=== PATIENT | female | born 1950 | race Caucasian/White ===

== ENCOUNTER 2017-02-06 19:02 | Inpatient (IN) | payer MEDICARE, OTHER ==
[2017-02-06] MEDS ORDERED: Phenergan 25 MG INJ IV ONE (19:13)
[2017-02-06] MEDS ORDERED: Sodium Chloride 0.9% 1000 ML 1,000 ML IV STA ×2 (19:13→20:37)
[2017-02-06] MEDS ORDERED: Sodium Chloride 0.9% 1000 ML 1,000 ML ONE ×2 (19:15→20:47)
[2017-02-06] MEDS ORDERED: Phenergan 25 MG INJ ONE (19:15)
--- NOTE | 2017-02-06 19:15 | ERPHSYRPT ---
- History of Present Illness Time Seen by Provider: 02/06/17 19:21 Historian: patient Exam Limitations: no limitations Physician History: FOR THE PAST MONTH PT HAS HAD DIARRHEA AND LUQ ABDOMINAL CRAMPS/SORENESS; FOR THE PAST WEEK PT HAS HAD NAUSEA; FOR THE PAST 5 DAYS BLACK STOOLS; TODAY VOMITING BLACK EMESIS X1. PT HAS BEEN TAKING PEPTO BISMAL. PT DENIES FEVER, COUGH, DYSURIA; ADMITS TO DAILY ALCOHOL CONSUMPTION FOR THE PAST 15 YEARS. Allergies/Adverse Reactions: No Known Drug Allergies Allergy (Unverified 02/06/17 19:07) Home Medications: No Reportable Medications [No Reported Medications] 02/06/17 [History] - Review of Systems Constitutional: No Fever Respiratory: No Cough Abdominal/Gastrointestinal: Abdominal Pain, Nausea, Vomiting, Diarrhea Genitourinary Symptoms: No Dysuria Neurological: No Headache Psychological: Alcohol Abuse All Other Systems: Reviewed and Negative - Nursing Vital Signs Nursing Vital Signs: Initial Vital Signs Temperature 98.0 F 02/06/17 19:07 Pulse Rate 120 H 02/06/17 19:07 Respiratory Rate 16 02/06/17 19:07 Blood Pressure 112/56 02/06/17 19:07 O2 Sat by Pulse Oximetry 96 02/06/17 19:07 Pain Scale Pain Intensity 2 - Physical Exam General Appearance: alert Eye Exam: PERRL/EOMI Ears, Nose, Throat Exam: pharynx normal, moist mucous membranes Neck Exam: normal inspection Respiratory Exam: lungs clear Cardiovascular Exam: normal heart sounds Gastrointestinal/Abdomen Exam: soft, normal bowel sounds Rectal Exam: normal rectal tone, hemorrhoids (ONE EXTERNAL HEMORRHOID) Back Exam: normal range of motion Extremity Exam: normal inspection, No pedal edema Neurologic Exam: alert, cooperative Skin Exam: warm, dry - Course Nursing assessment & vital signs reviewed: Yes - CT Exams Abdomen/Pelvis CT Interpretation: Discussed w/radiologist (NO COMPS. SPLENIC FLEXURE COLONIC MASS PRODUCING HIGH GRADE OBSTRUCTION. PROXIMAL COLON FLUID DISTENDED UP TO 4.7 CM. SMALL BOWEL LOOPS FLUID DISTENDED UP TO 3 CM & STOMACH MILDLY FLUID DISTENDED. SMALL FREE FLUID L COLIC GUTTER. 10MM L LOBE & 5MM R LOBE HEPATIC HYPODENSE LESIONS, METS VS CYST/HEMANGIOMA. ALSO 11MM SPLENIC CYST & CALCIFIED GRANULOMAS.) Ordered Tests: Active Orders 24 hr Category Date Time Status IV Insertion STAT Care 02/06/17 19:13 Active ABDOMEN AND PELVIS W/0 CONTRAS [CT] Stat Exams 02/06/17 19:43 Taken AMYLASE Stat Lab 02/06/17 19:35 Completed BLOOD CULTURE Stat Lab 02/06/17 21:02 Ordered CBC W DIFF Stat Lab 02/06/17 19:35 Completed CMP Stat Lab 02/06/17 19:35 Completed CULTURE,URINE Stat Lab 02/06/17 19:35 Received LIPASE Stat Lab 02/06/17 19:35 Completed Occult Blood,Stool Other Stat Lab 02/06/17 19:35 Ordered UA W/ MICROSCOPIC Stat Lab 02/06/17 19:35 Completed Medication Summary Generic Name Dose Route Start Last Admin Trade Name Freq PRN Reason Stop Dose Admin Sodium Chloride 1,000 mls @ 999 mls/hr 02/06/17 20:37 02/06/17 20:51 Sodium Chloride 0.9% 1000 Ml IV 02/06/17 21:37 999 mls/hr .Q1H1M STA Administration Ceftriaxone Sodium/Dextrose 1 g in 50 mls @ 100 mls/hr 02/06/17 21:02 Rocephin 1 Gm-D5w 50 Ml Bag IV 02/06/17 21:31 STAT STA Discontinued Medications Generic Name Dose Route Start Last Admin Trade Name Freq PRN Reason Stop Dose Admin Hydromorphone HCl 0.5 mg 02/06/17 19:42 02/06/17 19:49 Hydromorphone 1 Mg/Ml Ampule IV 02/06/17 19:43 0.5 mg STAT ONE Administration Hydromorphone HCl Confirm 02/06/17 19:46 Hydromorphone 1 Mg/Ml Ampule Administered 02/06/17 19:47 Dose 1 mg .ROUTE .STK-MED ONE Sodium Chloride 1,000 mls @ 999 mls/hr 02/06/17 19:13 02/06/17 19:36 Sodium Chloride 0.9% 1000 Ml IV 02/06/17 20:13 999 mls/hr .Q1H1M STA Administration Sodium Chloride Confirm 02/06/17 19:15 Sodium Chloride 0.9% 1000 Ml Administered 02/06/17 19:16 Dose 1,000 mls @ ud .ROUTE .STK-MED ONE Sodium Chloride Confirm 02/06/17 20:47 Sodium Chloride 0.9% 1000 Ml Administered 02/06/17 20:48 Dose 1,000 mls @ ud .ROUTE .STK-MED ONE Promethazine HCl 12.5 mg 02/06/17 19:13 02/06/17 19:36 Phenergan 25 Mg Inj IV 02/06/17 19:14 12.5 mg STAT ONE Administration Promethazine HCl Confirm 02/06/17 19:15 Phenergan 25 Mg Inj Administered 02/06/17 19:16 Dose 25 mg .ROUTE .STK-MED ONE Lab/Rad Data: Laboratory Result Diagrams 02/06/17 19:35 02/06/17 19:35 Laboratory Results 02/06/17 02/06/17 02/06/17 Range/Units 19:35 19:35 19:35 WBC 15.6 H (4.0-10.5) K/mm3 RBC 4.55 (4.1-5.4) M/mm3 Hgb 13.9 (12.0-16.0) gm/dl Hct 42.4 (35-47) % MCV 93.2 (78-100) fl MCH 30.5 (26-32) pg MCHC 32.8 (32-36) g/dl RDW 12.7 (11.5-14.0) % Plt Count 520 H (150-450) K/mm3 MPV 10.0 H (6-9.5) fl Gran % 71.9 H (36.0-66.0) % Lymphocytes % 17.9 L (24.0-44.0) % Monocytes % 9.2 (0.0-12.0) % Eosinophils % 0.6 (0.00-5.0) % Basophils % 0.4 (0.0-0.4) % Basophils # 0.06 (0-0.4) Sodium 139 (136-145) mEq/L Potassium 4.0 (3.5-5.1) mEq/L Chloride 100 (98-107) mEq/L Carbon Dioxide 23.3 (21-32) mEq/L Anion Gap 19.5 H (5-15) MEQ/L BUN 21 H (9-20) mg/dL Creatinine 1.03 (0.55-1.30) mg/dl Estimated GFR 57 ML/MIN Glucose 111 H (70-110) MG/DL Calcium 9.4 (8.5-10.1) mg/dL Total Bilirubin 0.40 (0.2-1.0) mg/dL AST 23 (15-37) U/L ALT 18 (12-78) U/L Alkaline Phosphatase 98 (46-116) U/L Serum Total Protein 8.4 H (6.4-8.2) gm/dL Albumin 3.6 (3.4-5.0) g/dL Amylase 30 (25-115) U/L Lipase 145 (73-393) U/L Ur Collection Type Urine Color (YELLOW) Urine Appearance (CLEAR) Urine pH (5-6) Ur Specific [place] (1.005-1.025) Urine Protein (Negative) Urine Ketones (NEGATIVE) Urine Blood (0-5) Dickson/ul Urine Nitrite (NEGATIVE) Urine Bilirubin (NEGATIVE) Urine Urobilinogen (0-1) mg/dL Ur Leukocyte Esterase (NEGATIVE) Urine Microscopic WBC (0-5) /HPF Ur Epithelial Cells (FEW) /HPF Urine Bacteria (NEGATIVE) /HPF Urine Glucose (NEGATIVE) mg/dL Specimen Received ABO Group B Rh Factor POSITIVE Antibody Screen NEGATIVE (NEGATIVE) 02/06/17 Range/Units 19:35 WBC (4.0-10.5) K/mm3 RBC (4.1-5.4) M/mm3 Hgb (12.0-16.0) gm/dl Hct (35-47) % MCV (78-100) fl MCH (26-32) pg MCHC (32-36) g/dl RDW (11.5-14.0) % Plt Count (150-450) K/mm3 MPV (6-9.5) fl Gran % (36.0-66.0) % Lymphocytes % (24.0-44.0) % Monocytes % (0.0-12.0) % Eosinophils % (0.00-5.0) % Basophils % (0.0-0.4) % Basophils # (0-0.4) Sodium (136-145) mEq/L Potassium (3.5-5.1) mEq/L Chloride (98-107) mEq/L Carbon Dioxide (21-32) mEq/L Anion Gap (5-15) MEQ/L BUN (9-20) mg/dL Creatinine (0.55-1.30) mg/dl Estimated GFR ML/MIN Glucose (70-110) MG/DL Calcium (8.5-10.1) mg/dL Total Bilirubin (0.2-1.0) mg/dL AST (15-37) U/L ALT (12-78) U/L Alkaline Phosphatase (46-116) U/L Serum Total Protein (6.4-8.2) gm/dL Albumin (3.4-5.0) g/dL Amylase (25-115) U/L Lipase (73-393) U/L Ur Collection Type CLEAN CATCH Urine Color YELLOW (YELLOW) Urine Appearance CLOUDY (CLEAR) Urine pH 5.0 (5-6) Ur Specific [place] 1.025 (1.005-1.025) Urine Protein TRACE (Negative) Urine Ketones SMALL (NEGATIVE) Urine Blood NEGATIVE (0-5) Dickson/ul Urine Nitrite NEGATIVE (NEGATIVE) Urine Bilirubin NEGATIVE (NEGATIVE) Urine Urobilinogen NORMAL (0-1) mg/dL Ur Leukocyte Esterase 2+ (NEGATIVE) Urine Microscopic WBC 15-25 (0-5) /HPF Ur Epithelial Cells FEW (FEW) /HPF Urine Bacteria FEW (NEGATIVE) /HPF Urine Glucose NEGATIVE (NEGATIVE) mg/dL Specimen Received [id number] ABO Group Rh Factor Antibody Screen (NEGATIVE) - Progress Discussed with DrNomi: Rk (2108 - WILL CONSULT)Danny (ADMIT - 2100) - Departure Time of Disposition: 21:10 Departure Disposition: Observation Clinical Impression: ABDOMINAL PAIN, COLONIC MASS, UTI Condition: Stable Critical Care Time: No Referrals: DOCTOR,NO FAMILY [Primary Care Provider] -
[2017-02-06] MEDS ORDERED: Hydromorphone 1 mg/ml Ampule IV ONE (19:42)
[2017-02-06 19:44] LABS: BASOPHIL % 0.4 % (0.0-0.4); Eosinophil % 0.6 % (0.00-5.0); Granulocytes % 71.9 % (36.0-66.0); Lymphocytes % 17.9 % (24.0-44.0); Mean Cell Volume 93.2 fl (78-100); Mean Corpuscular Hemoglobin 30.5 pg (26-32); Monocytes % 9.2 % (0.0-12.0); Platelet Count 520 K/mm3 (150-450); Red Blood Count 4.55 M/mm3 (4.1-5.4); Red Cell Distribution Width 12.7 % (11.5-14.0); White Blood Count 15.6 K/mm3 (4.0-10.5)
[2017-02-06] MEDS ORDERED: Hydromorphone 1 mg/ml Ampule ONE (19:46)
[2017-02-06 20:06] LABS: ALBUMIN 3.6 g/dL (3.4-5.0); ANION GAP 19.5 MEQ/L (5-15); BILIRUBIN,TOTAL 0.4 mg/dL (0.2-1.0); Carbon Dioxide 23.3 mEq/L (21-32); Total Protein 8.4 gm/dL (6.4-8.2)
[2017-02-06 20:55] LABS: Collection Type CLEAN CATCH; Glucose NEGATIVE (NEGATIVE); Leukocyte Esterase 2+ (NEGATIVE)
[2017-02-06 20:56] LABS: ADD URINE CULTURE? YES (NO); Bacteria FEW /HPF (NEGATIVE); Bilirubin NEGATIVE (NEGATIVE); Blood NEGATIVE Ery/ul (0-5); COMPLETE URINE MICROSCOPIC? YES; Epithelial Cells FEW /HPF (FEW); WBC 15-25 /HPF (0-5)
[2017-02-06] MEDS ORDERED: ROCEPHIN 1 Gm-D5w 50 ml Bag** 1 G/50 ML IVPB IV STA (21:02)
[2017-02-06] MEDS ORDERED: ROCEPHIN 1 Gm-D5w 50 ml Bag** 1 G/50 ML IVPB IV ONE (21:07)
[2017-02-06 21:27] LABS: INR 1.01 (0.8-3.0); PROTIME 11.4 SECONDS (9.95-12.35)
[2017-02-06 21:30] LABS: PTT 32.3 SECONDS (25.3-37.0)
[2017-02-06] MEDS ORDERED: Ativan 2 MG/1 ML VIAL IV PRN (22:50)
[2017-02-06] MEDS ORDERED: Zofran 4 MG/2 ML VIAL IV PRN (22:50)
[2017-02-06] MEDS: DILAUDID 2 MG INJECTION IV PRN (23:02)
[2017-02-06] MEDS: Phenergan 25 MG INJ IV PRN (23:02)
[2017-02-06] MEDS: Sodium Chloride 0.9% 1000 ML 1,000 ML IV SCH (23:02)
[2017-02-07 05:06] LABS: Eosinophil % 0.5 % (0.00-5.0); Granulocytes % 76.8 % (36.0-66.0); Lymphocytes % 13.1 % (24.0-44.0); Mean Cell Volume 95.4 fl (78-100); Mean Corpuscular Hemoglobin 30.3 pg (26-32); Mean Platelet Volume 9.3 fl (6-9.5); Monocytes % 9.4 % (0.0-12.0); Platelet Count 464 K/mm3 (150-450); Red Blood Count 4.09 M/mm3 (4.1-5.4); Red Cell Distribution Width 12.6 % (11.5-14.0); White Blood Count 15.1 K/mm3 (4.0-10.5)
[2017-02-07 05:07] LABS: BASOPHIL % 0.2 % (0.0-0.4)
[2017-02-07] MEDS: Phenergan 25 MG INJ IV PRN ×2 (05:24→09:32)
[2017-02-07] MEDS: DILAUDID 2 MG INJECTION IV PRN ×2 (05:24→09:27)
[2017-02-07 05:25] LABS: ALBUMIN 2.8 g/dL (3.4-5.0); ALKALINE PHOSPHATASE 80 U/L (46-116); ANION GAP 14.7 MEQ/L (5-15); BLOOD UREA NITROGEN 20 mg/dL (9-20); CHLORIDE 106 mEq/L (98-107); Carbon Dioxide 25.5 mEq/L (21-32); Glucose 112 MG/DL (70-110); SGOT/AST 18 U/L (15-37); SGPT/ALT 14 U/L (12-78); SODIUM 142 mEq/L (136-145); Total Protein 6.9 gm/dL (6.4-8.2)
[2017-02-07] MEDS ORDERED: MORPHINE SULFATE 10 MG/ML IV ONE (08:00)
[2017-02-07] MEDS ORDERED: BLOXIVERZ IV ONE (08:00)
[2017-02-07] MEDS ORDERED: Decadron 4 MG INJ IV ONE (08:00)
[2017-02-07] MEDS ORDERED: ROBINUL IV ONE (08:00)
[2017-02-07] MEDS ORDERED: Quelicin Fliptop 200 MG/10 ML IJ ONE (08:00)
[2017-02-07] MEDS ORDERED: Zemuron 100 MG/10 ML IJ ONE (08:00)
[2017-02-07] MEDS ORDERED: SUBLIMAZE 100 MCG/2 ML IV ONE (08:00)
[2017-02-07] MEDS ORDERED: Zofran 4 MG/2 ML VIAL IV ONE (08:00)
[2017-02-07] MEDS ORDERED: PHENYLEPHRINE HCL IJ ONE (08:00)
[2017-02-07] MEDS ORDERED: DIPRIVAN 200 MG/20 ML IV ONE (08:00)
--- NOTE | 2017-02-07 08:43 | PCM.HP ---
History of Present Illness - Chief Complaint Chief Complaint: ABDOMINAL PAIN; COLONIC MASS; UTI. History of Present Illness: is a 66 year old female pt who last saw me in office about 5 years ago who came through ER complaining of 1mo of diarrhea, 1 d of vomiting, and black tarry stools. Diarrhea was daily to twice daily. Her vomitus was black and smells like feces. She has been having LUQ pain for the past 1 mo. She was found in ER to have a colonic mass at the splenic flexure with high grade obstruction and fluid in the small intesting and stomach. She did projectile vomit an unknown amount last night, and after that vomited 650 cc of black liquid that smelled like feces. Last po intake was some green tea the day of admission. She may have had some solid food that day as well. She smokes daily at least 1 PPD and drinks 5-6 drinks on average daily (beer or Shayne Ruiz). Occasional THC use, denies other drug use. Denies any recent weight loss; lost weight 5 yrs ago when her and never regained it. No fever. She has never had a mammogram. Never had any abdominal surgeries. - Review of Systems Cardiac: Chest Pain (1 mo ago, may have been related to activity) Abdominal/Gastrointestinal: Abdominal Pain, Nausea, Vomiting, Diarrhea, Melena, Appetite Changes Psychological: Alcohol Abuse, Drug Abuse All Other Systems: Reviewed and Negative Medications & Allergies Home Medications: Home Medication List Multivitamin [Multi-Vitamin Daily] 1 tablet PO DAILY 02/06/17 [History Confirmed 02/06/17] Allergies/Adverse Reactions: Allergies Allergy/AdvReac Type Severity Reaction Status Date / Time No Known Drug Allergies Allergy Verified 02/06/17 21:47 - Past Medical History Past Medical History: No Neurological History: No Pertinent History ENT History: No Pertinent History Cardiac History: No Pertinent History Respiratory History: No Pertinent History Endocrine Medical History: No Pertinent History Musculoskelatal History: No Pertinent History GI Medical History: No Pertinent History History: No Pertinent History Pyscho-Social History: No Pertinent History Reproductive Disorders: No Pertinent History - Female History Hx Last Menstrual Period: n/a Are you now?: No - Past Surgical History Past Surgical History: No Neuro Surgical History: No Pertinent History Cardiac History: No Pertinent History Respiratory Surgery: No Pertinent History GI Surgical History: No Pertinent History Genitourinary Surgical Hx: No Pertinent History Musculskeletal Surgical Hx: No Pertinent History Female Surgical History: No Pertinent History - Social History Smoking Status: Current every day smoker How long have you smoked: 47 years Exposure to second hand smoke: No Alcohol: Daily Drug Use: none - Physical Exam Vital Signs: Vital Signs - 24 hr Temp Pulse Resp BP Pulse Ox 02/07/17 08:00 98.6 F 100 H 18 109/61 92 L 02/07/17 04:32 89 20 96 02/07/17 04:00 98.3 F 100 H 20 124/72 96 02/07/17 00:32 96 02/07/17 00:00 16 90 L 02/06/17 22:01 98.4 F 101 H 18 121/61 90 L 02/06/17 21:44 101 H 18 121/61 90 L 02/06/17 21:13 100 H 16 144/78 95 02/06/17 20:56 99 H 14 118/67 100 02/06/17 20:05 100 H 20 136/74 95 02/06/17 19:07 98.0 F 120 H 16 112/56 96 Oxygen-Last 24 hours O2 Percentage 2 Liters = 28% O2 Percentage 2 Liters = 28% General Appearance: no apparent distress, thin Neurologic Exam: alert, 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, cooperative, normal mood/affect Eye Exam: eyes nml inspection Ears, Nose, Throat Exam: moist mucous membranes Neck Exam: normal inspection Respiratory Exam: normal breath sounds, crackles/rales (faint crackles RLL), other (good air exchange), No rhonchi, No wheezing Cardiovascular Exam: regular rate/rhythm, normal heart sounds, No murmur Gastrointestinal/Abdomen Exam: soft, tenderness (generalized diffuse very mild ttp), other (hyperactive bowel sounds), No distention, No mass, No guarding, No rebound Rectal Exam: not done (done in ER, no gross blood, not enough stool to hemoccult ) Back Exam: normal inspection Extremity Exam: No pedal edema, No swelling Skin Exam: normal color, warm, dry, No rash Results - Labs Lab/Micro Results: Lab Results-Last 24 Hours 02/07/17 02/07/17 Range/Units 05:03 05:03 WBC 15.1 H (4.0-10.5) K/mm3 RBC 4.09 L (4.1-5.4) M/mm3 Hgb 12.4 (12.0-16.0) gm/dl Hct 39.0 (35-47) % MCV 95.4 (78-100) fl MCH 30.3 (26-32) pg MCHC 31.8 L (32-36) g/dl RDW 12.6 (11.5-14.0) % Plt Count 464 H (150-450) K/mm3 MPV 9.3 (6-9.5) fl Gran % 76.8 H (36.0-66.0) % Lymphocytes % 13.1 L (24.0-44.0) % Monocytes % 9.4 (0.0-12.0) % Eosinophils % 0.5 (0.00-5.0) % Basophils % 0.2 (0.0-0.4) % Basophils # 0.03 (0-0.4) Sodium 142 (136-145) mEq/L Potassium 4.0 (3.5-5.1) mEq/L Chloride 106 (98-107) mEq/L Carbon Dioxide 25.5 (21-32) mEq/L Anion Gap 14.7 (5-15) MEQ/L BUN 20 (9-20) mg/dL Creatinine 0.72 (0.55-1.30) mg/dl Estimated GFR > 60 ML/MIN Glucose 112 H (70-110) MG/DL Calcium 8.4 L (8.5-10.1) mg/dL Total Bilirubin 0.40 (0.2-1.0) mg/dL AST 18 (15-37) U/L ALT 14 (12-78) U/L Alkaline Phosphatase 80 (46-116) U/L Serum Total Protein 6.9 (6.4-8.2) gm/dL Albumin 2.8 L (3.4-5.0) g/dL - Other Procedures and Tests Respiratory Therapy 02/07/17 05:39 Oxygen NASAL CANNULA 2 lpm Assessment/Plan (1) Colonic mass Current Visit: Yes Status: Acute Assessment & Plan: Surgery has been consulted. They discussed doing a colonoscopy (unsure if pt could do a colon prep; possibly distal colon is free from major stool as she's had diarrhea x 1 mo). I did discuss with pt that cancer is high on the list of differential diagnoses. Code(s): K63.9 - DISEASE OF INTESTINE, UNSPECIFIED (2) Obstruction, colon Current Visit: Yes Status: Acute Assessment & Plan: Pt did not have NG tube placed; she did vomit a large amount this morning. Any further N/V would place NG tube. Code(s): K56.60 - UNSPECIFIED INTESTINAL OBSTRUCTION (3) Liver mass Current Visit: Yes Status: Acute Assessment & Plan: She is resistant to the thought of a liver biopsy; her had one in the past and he told her it was extremely painful. Code(s): R16.0 - HEPATOMEGALY, NOT ELSEWHERE CLASSIFIED (4) Alcohol abuse Current Visit: Yes Status: Acute Assessment & Plan: Her last drink was 2d ago. Denies any hx DTs. However, will give IV ativan prn. Code(s): F10.10 - ALCOHOL ABUSE, UNCOMPLICATED (5) Tobacco abuse Current Visit: Yes Status: Acute Assessment & Plan: OK nicotine patch (21mg/d) if needed. Code(s): Z72.0 - TOBACCO USE
--- NOTE | 2017-02-07 09:15 | XRAY ---
Indication: Left upper quadrant pain, diarrhea, nausea, black emesis, and black tarry stools. Multiple contiguous axial images obtained through the abdomen and pelvis without contrast as ordered. Comparison: None Lung bases are clear. Heart is not enlarged. Stomach is mildly fluid distended. Small and large bowel loops are also abnormally fluid distended with the small bowel distended up to 3 cm and the colon distended up to 4.7 cm. This is seen up to level of the splenic flexure of the colon where there is a underlying colonic mass producing high-grade obstruction. More distal descending and sigmoid colon appears decompressed. Small left colic gutter fluid but no walled off fluid collection or free air. Faint radiodensities in the cecum and appendix presumed ingested medication. 5 mm gallstone, 2 cm left adrenal adenoma, 1.5 cm right adrenal adenoma, calcified splenic granulomas, and 11 mm splenic cyst. There is a 10 mm hypodense lesion in the medial left lobe liver and a smaller 5 mm hypodense lesion in the right lobe near the dome of the diaphragm anteriorly either cyst versus hemangioma versus metastasis. Remaining pancreas, kidneys, ureters, bladder, and uterus appear unremarkable for noncontrast exam. Mild aortoiliac calcifications without AAA. Osseous structures intact with L3-L5 degenerative changes. Impression: 1. Splenic flexure colonic mass producing obstruction as detailed. Small free fluid but no walled off fluid collection or free air. 2. At least 2 small hepatic hypodense lesions either benign cysts/hemangiomas versus metastasis. Contrast exam may yield further information. 3. Incidental gallstone, bilateral adrenal adenomas, splenic cyst, and splenic calcified granulomas. CTDI 8.51
[2017-02-07] MEDS: Sodium Chloride 0.9% 1000 ML 1,000 ML IV SCH (09:19)
[2017-02-07] MEDS: PROTONIX 40 MG IV IV SCH (09:19)
[2017-02-07] MEDS ORDERED: Lactated Ringers 1,000 ML IV SCH (14:30)
[2017-02-07] MEDS ORDERED: AlbuRx 25% 50ML VIAL*** 50 ML IV ONE (17:28)
[2017-02-07] MEDS ORDERED: Lactated Ringers 1,000 ML IV ONE ×2 (18:21→19:39)
[2017-02-07] MEDS ORDERED: DILAUDID 2 MG INJECTION ONE (20:59)
[2017-02-07] MEDS ORDERED: DILAUDID 1 MG/1ML PCA ONE (21:05)
[2017-02-07] MEDS ORDERED: ROCEPHIN 1 Gm-D5w 50 ml Bag** 1 G/50 ML IVPB IV SCH (22:00)
[2017-02-07] MEDS ORDERED: DILAUDID 1 MG/1ML PCA IV PRN (22:03)
[2017-02-07] MEDS ORDERED: Zofran 4 MG/2 ML VIAL IV PRN (22:05)
--- NOTE | 2017-02-07 22:30 | XRAY ---
Indication: Line placement. Post surgery. Comparison: None Portable chest demonstrates right jugular central venous access catheter with the tip projecting over the SVC and NG tube with the tip presumed in the stomach. Lungs slightly underinflated and clear. No pneumothorax. Heart is not enlarged. Bony thorax intact. Impression: Nonacute underinflated chest with central venous access catheter and NG tube in situ.
[2017-02-07] MEDS: FLAGYL 500 MG IVPB 500 MG/100 ML BAG IV SCH (23:34)
[2017-02-08] MEDS: Zosyn 3.375GM/100 Ml D5W 3.375 GM/100 ML IVPB IV SCH ×4 (00:47→17:23)
[2017-02-08] MEDS: D5W/0.45NS W/ 20mEq KCl 1000 ML 1,000 ML IV SCH ×2 (04:05→14:40)
[2017-02-08 05:05] LABS: BASOPHIL % 0.1 % (0.0-0.4); Granulocytes % 88.3 % (36.0-66.0); Lymphocytes % 5.1 % (24.0-44.0); Mean Corpuscular Hemoglobin 30.6 pg (26-32); Mean Platelet Volume 9.1 fl (6-9.5); Monocytes % 6.5 % (0.0-12.0); Platelet Count 406 K/mm3 (150-450); Red Blood Count 3.46 M/mm3 (4.1-5.4); Red Cell Distribution Width 12.9 % (11.5-14.0); White Blood Count 22.3 K/mm3 (4.0-10.5)
[2017-02-08 05:20] LABS: ANION GAP 13.5 MEQ/L (5-15); BLOOD UREA NITROGEN 17 mg/dL (9-20); CHLORIDE 109 mEq/L (98-107); Carbon Dioxide 24.4 mEq/L (21-32); Glucose 168 MG/DL (70-110); Potassium 4.5 mEq/L (3.5-5.1); SODIUM 142 mEq/L (136-145)
[2017-02-08] MEDS: FLAGYL 500 MG IVPB 500 MG/100 ML BAG IV SCH ×3 (06:02→22:41)
[2017-02-08] MEDS ORDERED: NORCO 5/325 MG PO PRN (07:48)
--- NOTE | 2017-02-08 07:49 | CONS ---
CONSULT DATE: 02/07/2017 This patient is seen for Dr. Amado who was called yesterday when he was labor relations director. He asked that I see the patient this afternoon as he is tied up in the office. HISTORY: A 66 year-old female has not felt well for a month, had some left upper quadrant cramping pain, had some loose stools, had bowel movement yesterday. She has not had any bowel movement today. She had some nausea, had some vomiting yesterday. She had some dark emesis. She does drink three to six drinks of alcohol a day. PAST MEDICAL HISTORY: She denies any chronic illnesses. PAST SURGICAL HISTORY: She denied any prior surgery. MEDICATIONS: None on a regular basis. ALLERGIES: NKDA. FAMILY HISTORY: Negative for colon cancer, inflammatory bowel disease. She does not know of any chronic medical conditions in the family. SOCIAL HISTORY: Again, she drinks alcohol and a one pack per day smoker. REVIEW OF SYSTEMS: Twelve systems reviewed pertinent for as noted above. No current chest pain or palpitations. PHYSICAL EXAMINATION: GENERAL: No acute distress. She had NG in position. HEENT: Sclera nonicteric. NECK: No JVD. CHEST: Equal excursion, nonlabored breathing. CVS: Regular rate, rhythm and pulse. ABDOMEN: Soft, tenderness. She does have some distention. She had some tenderness in the left upper quadrant and left abdomen. LAB DATA AND TESTS: White blood cell count 15,100, hemoglobin 12.4, PLT 464,000. International normalized ratio was around 1. PTT 32. CT scan done yesterday evening radiologist felt high grade obstructing splenic flexure with proximal dilated colon, some proximal dilated small bowel with no free air. Small liver lesions unclear whether cyst versus metastasis. She had some calcified granulomas in the spleen. She had incidental 5 mm gallstone. IMPRESSION: Obstructing left colon density whether this is severe diverticular disease versus malignancy given her family history or inflammatory bowel disease either way Dr. Amado had given her some enemas. Will attempt a flexible sigmoidoscopy with colonoscopy. If she has a complete obstruction or malignancy or apparent lesion will then proceed with laparotomy possible partial colectomy, possible ostomy, possible reanastomosis pending operative findings. Most likely possible cholecystectomy. She was explained the risks and benefits explained in detail but not limited to bleeding or infection, risk of bowel injury or perforation regarding endoscopy possibly requiring open procedure, risk of incomplete exam or inability to tell what it was, general risk of anesthesia, deep venous thrombosis, pulmonary embolism, pneumonia as well as risk of any laparotomy, risk of bleeding or infection, risk of wound complications, hernia or dehiscence, risk of any anastomotic complications, leak, fistula formation, abscess possibly requiring other procedures or ostomy, risk if any ostomy performed at the initial setting, risk of ostomy, necrosis, retraction, parastomal hernia or other ostomy complication possibly requiring other procedures. She understands as well as general risk of anesthesia, deep venous thrombosis, pulmonary embolism, pneumonia, risk of cardiopulmonary event given her comorbidities. She understands and agrees to the planned procedure, will proceed with colonoscopy first, possible laparotomy, possible bowel resection or ostomy depending on operative findings, possible anastomosis. This patient was seen for Dr. Amado who was labor relations director for our group when the consult came in.
[2017-02-08] MEDS ORDERED: Sodium Chloride 0.9% 10 ML FLUSH Syringe IV PRN (07:56)
--- NOTE | 2017-02-08 08:35 | OP ---
SURGERY DATE/TIME: 02/07/2017 1700 PREOPERATIVE DIAGNOSIS: Left upper quadrant pain, question of obstructing lesion splenic flexure and colon on CT scan. POSTOPERATIVE DIAGNOSIS: Obstructing perforated transverse colon mass perforating into stomach and fourth portion of duodenum with left upper quadrant phlegmon. PROCEDURES: 1) Colonoscopy to transverse colon with multiple cold biopsies obstructing ulcerating inflamed mass with ink spot tattooing of location. 2) Exploratory laparotomy en bloc resection partial colectomy perforated transverse colon mass resected en bloc with portion of stomach (partial gastrectomy), also with resection of portion of duodenum with closure (partial transverse colectomy, partial gastrectomy, partial duodenectomy). 3) Take down of splenic flexure. 4) End colostomy. SURGEON: Dr. Kirk Chavez. ANESTHESIA: General. ESTIMATED BLOOD LOSS: Less than 230 cc. INDICATIONS: As noted above. Risks and benefits explained in detail and not limited to and consent obtained and per the consult. It was felt the patient would benefit from colonoscopy with obstructing lesion and then plan to proceed with surgery as discussed with the patient at the time discussed risks and benefits in detail but not limited and consent had been obtained. DESCRIPTION OF PROCEDURE AND FINDINGS: The patient is taken to the operating room. General anesthesia was introduced. In lateral position with appropriate padding and positioning per anesthesia and OR staff. A digital rectal exam did not reveal any rectal mass. She did have some small internal hemorrhoids. She did have some diverticulosis. She had poor prep. She had some enemas as ordered by Dr. Amado earlier in the day. The scope was able to be advanced around the splenic flexure to the distal transverse colon where she appeared to have an ulcerated, inflamed, obstructing inflammatory mass. Multiple cold biopsies taken. Some ink spot tattooing was placed at the distal end of this lesion. Again the poor prep did limit the exam. There were no signs of any other large masses or large polyps. Again she had diverticulosis with some small hemorrhoids. Exam was limited for any small lesions. The scope was withdrawn decompressing the colon as well as possible. She had obstructing lesions. It was felt that she would benefit from laparotomy therefore she was prepped and draped in usual sterile fashion. We scrubbed again. Midline incision was made. Again this is all after official time out. Dissection carried down through the linea alba. She did have small, little epigastric ventral hernia that was opened and reduced back into the abdomen. The liver was smooth and purple. The area in question appeared to be hepatic cyst that could be visualized. It was felt that it did not warrant biopsy. The two areas on CT scan appeared to be hepatic cysts at least visually. No other more superficial liver lesions could be palpated at this point. At this point proximal colon was soft. No obvious large masses. Distal colon was soft with no obvious large masses. There was a phlegmon in the left upper quadrant at least initially it appeared to be separate from the stomach. Therefore it was felt that it warranted attempted resection. White line of Toldt was taken down laterally. Splenic flexure was then taken down with a combination of LigaSure device, clamping and ligating with Vicryl ties as necessary. It was then evident at this point the distal part of the colon limb had been transected, that this appeared to be perforated erosion into the stomach. Therefore it was felt that given the extensive inflammatory what appeared to be tumor infiltration it was felt that she does not warrant to do a total gastrectomy. Therefore it was felt the next best option would be to do a partial gastrectomy, take a sleeve of this part of the stomach that appeared to be involved with the colon and perforation. Therefore going back to more soft viable stomach. Linear GI staplers fired across this taking a rim of the greater curvature with a combination of linear stapler and contour stapler. Staple line appeared to be intact and viable. The colon was then continued to be mobilized up off of the pancreas and phlegmon that it had. Again this is a diffuse infiltrating process. Initially it was felt to be separate from fourth portion of duodenum but it eventually appeared to have a segment eroded into the duodenum. The residual mesentery is taken down with clamps and Vicryl ties and passed off. A small piece of Surgicel had been left by the spleen in a pack. The specimen is passed off. The rim that appeared to have eroded into the duodenum was carefully visualized. Again it was felt the best option would be to go back to normal appearing duodenum and take a rim of the duodenum this was done with TX stapler green load and over sewn. The specimen is passed off. It was then over sewn with running 3-0 PDS. It appeared to be a viable resection staple line. Copious amount of irrigation irrigating until clear. The splenic area was carefully re-inspected. Copious amount of irrigation irrigating until clear. Small, little piece of Surgicel left in position. It appeared to have adequate hemostasis. Copious amount of irrigation irrigated. The lap sponges had been removed. It was felt that the patient definitely warranted an ostomy. Given all what appeared to be infiltrating tumor left upper quadrant, it was felt it is not safe to hook the bowel back together in the more distal colon. Therefore the transverse colon immobilized up in the right upper quadrant to cruciate fascial incision. It was matured with interrupted 3-0 and 4-0 Vicryl in a nippled fashion. Nice and healthy viable tension free in transverse colostomy proximal transverse colostomy. At this point copious amount of irrigation irrigating until clear. The stomach staple line appeared to be adequate. The NG had been palpated and had been moved by anesthesia and was free. It was left in good position. DIONICIO drain was placed out lateral to the fourth portion of the duodenum as well as another DIONICIO placed out by the pancreatic tail and tip of the spleen. The omentum was right over the top of the duodenum staying away from where the tumor bed had been as well as the omentum laid on the edge of the stomach staple line. Copious amount of irrigation irrigating until clear. All DIONICIO drains are in position. Ostomy had been brought up and was matured after closing the fascial incision as mentioned. Gloves and instruments were changed. Fistula visceral protector was inserted. The fascia closed with running looped PDS sequential fashion. Subcu irrigated out. Skin stapled. As she had perforated colon some Iodoform bladimir were placed in between staple line to be gradually advanced out over the next few days. Again, the drains were secured with PDS suture and placed to bulb suction and ostomy had been matured in nippled fashion with interrupted 3-0 and 4-0 Vicryl in usual fashion. Ostomy appliance of sterile dressing, abdominal binder applied. The patient tolerated the procedures well as possible. Findings were discussed with the family out in the waiting area including the fact of the extensive perforation and disease, would place her in a better position but there is a possibility that if she failed to heal her stomach, develop a leak over her duodenum she might need transfer to tertiary center to get their opinion. Otherwise if she is able to heal these and bowel function returns and able to remove the NG after upper GI study then would follow up with oncology once path is obtained. They expressed understanding and understand that she has guarded overall intermediate manager prognosis.
--- NOTE | 2017-02-08 08:43 | PCM.NOTE ---
Date and Time: 02/08/17 0837 Subjective Assessment: Pt had surgery yesterday by Dr. Martínez, colon resection with colostomy. Overnight she was on dilaudid pain pump and the dosing was increased x 1. She is still having 9/10 pain currently. She was not using the pain pump correctly , was holding the button down so her lockout number is quite high. This morning she is sleepy, the pain is all in the abdomen. She was just readjusted by the RNs which helped somewhat. C/o being thirsty. - Review of Systems Constitutional: No Fever Abdominal/Gastrointestinal: Abdominal Pain Objective Exam General Appearance: mild distress, other (but somnolent) Neurologic Exam: cooperative Skin Exam: normal color, warm, dry Neck Exam: other (IJ present L anterior neck) Respiratory Exam: normal breath sounds, lungs clear, No crackles/rales, No rhonchi, No wheezing Cardiovascular Exam: normal heart sounds, tachycardia, No murmur Gastrointestinal/Abdomen Exam: soft, other (abd binder is present; under binder abd appears soft. Dressings in place, drainage tube in place with serosanguinous drainage. ostomy in place RLQ. Bowel sounds hypoactive.) Extremity Exam: other (SCDs in place), No pedal edema, No swelling OBJECTIVE DATA Vital Signs: Vital Signs - 24 hr Temp Pulse Resp BP Pulse Ox 02/08/17 07:46 98.5 F 99 H 14 134/79 90 L 02/08/17 06:46 92 L 02/08/17 04:23 98.4 F 112 H 16 138/74 92 L 02/08/17 01:19 90 F 112 H 12 154/79 90 L 02/07/17 23:30 110 H 14 137/64 92 L 02/07/17 23:07 112 H 12 88 L 02/07/17 23:00 98.0 F 110 H 12 134/68 91 L 02/07/17 22:30 97.8 F 113 H 12 128/65 91 L 02/07/17 22:15 112 H 14 137/65 91 L 02/07/17 22:00 98.4 F 106 H 16 134/63 92 L 02/07/17 21:45 98.4 F 105 H 12 129/68 91 L 02/07/17 15:22 98.5 F 102 H 16 119/62 95 08/08/17 15:18 95 02/07/17 11:29 98.5 F 102 H 16 119/62 94 L Oxygen-Last 24 hours O2 Percentage 4 Liters = 36% O2 Percentage 3 Liters = 32% O2 Percentage 4 Liters = 36% O2 Percentage 4 Liters = 36% O2 Percentage 4 Liters = 36% O2 Percentage 2 Liters = 28% O2 Percentage 2 Liters = 28% O2 Percentage 2 Liters = 28% O2 Percentage 2 Liters = 28% O2 Percentage 2 Liters = 28% Pain Assessment - Last Documented Pain Intensity 10 Pain Scale Used 0-10 Pain Scale Intake and Output: Intake & Output 02/05/17 02/06/17 02/07/17 02/08/17 11:59 11:59 11:59 11:59 Intake Total 2035 Output Total 350 1950 Balance -350 85 Weight 55.747 kg Lab Results: Lab Results-Last 24 Hours 02/08/17 Range/Units 04:50 WBC 22.3 H (4.0-10.5) K/mm3 RBC 3.46 L (4.1-5.4) M/mm3 Hgb 10.6 L (12.0-16.0) gm/dl Hct 33.9 L (35-47) % MCV 98.0 (78-100) fl MCH 30.6 (26-32) pg MCHC 31.3 L (32-36) g/dl RDW 12.9 (11.5-14.0) % Plt Count 406 (150-450) K/mm3 MPV 9.1 (6-9.5) fl Gran % 88.3 H (36.0-66.0) % Lymphocytes % 5.1 L (24.0-44.0) % Monocytes % 6.5 (0.0-12.0) % Eosinophils % 0.0 (0.00-5.0) % Basophils % 0.1 (0.0-0.4) % Basophils # 0.02 (0-0.4) Radiology Exams: Radiology Procedures Category Date Time Status CHEST 1 VIEW (PORTABLE) Stat Exams 02/07/17 20:55 Completed Multi-Disciplinary Progress Notes: Multi-Disciplinary Progress Notes 02/07/17 20:24 Respiratory Note by Jorge Nichols PT IN SURGERY DURING O2 ROUNDS. I WILL CHECK BACK LATER. Initialized on 02/07/17 20:24 - END OF NOTE 02/07/17 10:10 Case Management Note by Jody Michelle SPOKE WITH SAMY LIVES ALONE, INDEPENDENT WITH ALL ADL'S . PT UNSURE OF ANY DISCHARGE NEEDS AT THIS TIME. WILL FOLLOW ANY DC NEEDS. IMPORTANT MESSAGE FROM MEDICARE GIVEN, PT SIGNED AND COPY TO CHART AND PT. Initialized on 02/07/17 10:10 - END OF NOTE Assessment/Plan (1) S/P colon resection Current Visit: Yes Status: Acute Assessment & Plan: POD #1, she is having trouble with pain control. 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 I reiterated to pt how to use the pain pump. Code(s): Z90.49 - ACQUIRED ABSENCE OF OTHER SPECIFIED PARTS OF DIGESTIVE TRACT (2) Colonic mass Current Visit: Yes Status: Acute Assessment & Plan: pathology pending. Code(s): K63.9 - DISEASE OF INTESTINE, UNSPECIFIED (3) Alcohol abuse Current Visit: Yes Status: Acute Assessment & Plan: will add some ativan IV today. Code(s): F10.10 - ALCOHOL ABUSE, UNCOMPLICATED (4) Tobacco abuse Current Visit: Yes Status: Acute Code(s): Z72.0 - TOBACCO USE (5) Liver lesion Current Visit: Yes Status: Acute Assessment & Plan: After pathology on colon mass is in, will have pt discuss with oncology next best step. Code(s): K76.9 - LIVER DISEASE, UNSPECIFIED
[2017-02-08] MEDS: DILAUDID 1 MG/1ML PCA IV PRN (09:06)
[2017-02-08] MEDS: Ativan 2 MG/1 ML VIAL IV SCH ×3 (10:22→21:25)
[2017-02-08] MEDS: PROTONIX 40 MG IV IV SCH (10:23)
[2017-02-08] MEDS: ENOXAPARIN SODIUM SQ SCH (12:50)
[2017-02-08] MEDS ORDERED: Thrombin-JMI 5000 UNITS TP ONE (19:45)
[2017-02-09] MEDS: Zosyn 3.375GM/100 Ml D5W 3.375 GM/100 ML IVPB IV SCH ×4 (00:08→17:07)
[2017-02-09] MEDS ORDERED: Lasix 20 MG/2 ML IV ONE (00:40)
[2017-02-09 06:29] LABS: Mean Cell Volume 98.5 fl (78-100); Mean Corpuscular Hemoglobin 30.4 pg (26-32); Mean Platelet Volume 9.9 fl (6-9.5); Platelet Count 349 K/mm3 (150-450); Red Blood Count 2.73 M/mm3 (4.1-5.4); Red Cell Distribution Width 12.6 % (11.5-14.0); White Blood Count 17.3 K/mm3 (4.0-10.5)
[2017-02-09 06:49] LABS: BLOOD UREA NITROGEN 15 mg/dL (9-20); CHLORIDE 107 mEq/L (98-107); Carbon Dioxide 30.2 mEq/L (21-32); Glucose 137 MG/DL (70-110); Potassium 3.8 mEq/L (3.5-5.1); SODIUM 142 mEq/L (136-145)
--- NOTE | 2017-02-09 08:41 | PCM.NOTE ---
Date and Time: 02/09/17 0837 Subjective Assessment: Overnight her O2 sat dropped and she was placed on oximizer. Dr. Porras ordered IV lasix and she had quite a bit of fluid out. She also had some marked anxiety. This morning she notes she is feeling much better. Abd pain is 3/10. Breathing is better. - Review of Systems Constitutional: No Fever Respiratory: Short Of Breath Abdominal/Gastrointestinal: Abdominal Pain Objective Exam General Appearance: no apparent distress Neurologic Exam: alert, 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, cooperative Skin Exam: normal color, warm, dry Respiratory Exam: normal breath sounds, lungs clear (good air exchange), No crackles/rales, No rhonchi, No wheezing Cardiovascular Exam: regular rate/rhythm, normal heart sounds, No murmur Gastrointestinal/Abdomen Exam: soft, other (hypoactive bowel sounds. Binder in place. 2 DIONICIO drains with small amount of serosanguinous drainage.), No distention Extremity Exam: No pedal edema, No swelling (SCDs in place) OBJECTIVE DATA Vital Signs: Vital Signs - 24 hr Temp Pulse Resp BP Pulse Ox 02/09/17 07:09 99.4 F 106 H 15 102/54 96 02/09/17 06:42 105 H 14 96 02/09/17 05:06 90 L 02/09/17 03:30 99.3 F 116 H 14 118/56 90 L 02/09/17 00:55 92 L 02/09/17 00:00 98.3 F 128 H 18 137/63 92 L 02/08/17 23:56 119 H 14 93 L 02/08/17 21:28 92 L 02/08/17 20:00 97.4 F 112 H 12 126/58 92 L 02/08/17 19:11 109 H 14 93 L 02/08/17 17:06 94 L 02/08/17 16:52 96 02/08/17 16:00 98.1 F 112 H 14 138/68 97 02/08/17 13:41 97 02/08/17 13:06 94 L 02/08/17 11:36 98.3 F 114 H 14 143/73 94 L Oxygen-Last 24 hours O2 Percentage 50% O2 Percentage 5 Liters = 40% O2 Percentage 4 Liters = 36% Pain Assessment - Last Documented Pain Intensity 3 Pain Scale Used 0-10 Pain Scale Intake and Output: Intake & Output 02/06/17 02/07/17 02/08/17 02/09/17 11:59 11:59 11:59 11:59 Intake Total 2034 1986 Output Total 334 3462 9599 Balance -350 85 -693 Weight 56.109 kg 58.151 kg Lab Results: Lab Results-Last 24 Hours 02/08/17 02/09/17 02/09/17 Range/Units 04:50 04:00 06:00 WBC 17.3 H (4.0-10.5) K/mm3 RBC 2.73 L (4.1-5.4) M/mm3 Hgb 8.3 L (12.0-16.0) gm/dl Hct 26.9 L (35-47) % MCV 98.5 (78-100) fl MCH 30.4 (26-32) pg MCHC 30.9 L (32-36) g/dl RDW 12.6 (11.5-14.0) % Plt Count 349 (150-450) K/mm3 MPV 9.9 H (6-9.5) fl Sodium 142 142 (136-145) mEq/L Potassium 4.5 3.8 (3.5-5.1) mEq/L Chloride 109 H 107 (98-107) mEq/L Carbon Dioxide 24.4 30.2 (21-32) mEq/L Anion Gap 13.5 9.0 (5-15) MEQ/L BUN 17 15 (9-20) mg/dL Creatinine 0.83 0.89 (0.55-1.30) mg/dl Estimated GFR > 60 > 60 ML/MIN Glucose 168 H 137 H (70-110) MG/DL Calcium 7.6 L 7.7 L (8.5-10.1) mg/dL Radiology Exams: Radiology Procedures Category Date Time Status CHEST 1 VIEW (PORTABLE) Stat Exams 02/07/17 20:55 Completed CHEST 1 VIEW (PORTABLE) Urgent Exams 02/09/17 07:47 Taken Multi-Disciplinary Progress Notes: Multi-Disciplinary Progress Notes 02/09/17 05:14 Respiratory Note by Jorge Nichols NURSING CONTACTED ME TO STATE THAT THEY HAD INCREASED PTS LITER FLOW FROM 8LPM O2 TO 9LPM O2 DUE TO LOW SATS. WHEN I RETURNED AND CHECKED ON THE PT SHE HAD A SAT OF 94% ON 9LPM OXYMIZER. Initialized on 02/09/17 05:14 - END OF NOTE 02/08/17 13:36 Case Management Note by Jody Michelle SPOKE WITH PT NORI LINO RE ANY DISCHARGE NEEDS. STATES WAITING ON SURGEON TO POSSIBLE TRANSFER TO ANOTHER HOSPITAL. WILL FOLLOW ALL DISCHARGE NEEDS. Initialized on 02/08/17 13:36 - END OF NOTE 02/08/17 10:46 Case Management Note by Jody Michelle SPOKE WITH PT THIS AM PT IS DROWSEY AT THIS TIME NOT SURE OF PLANS AT THIS TIME. ATTEMPTED TO CALL NORI LINO WHO IS PT LAY CAREGIVER NO ANSWER WILL ATTEMPT TO CALL AGAIN WILL FOLLOW ALL DISCHARGE NEEDS AT THIS TIME. Initialized on 02/08/17 10:46 - END OF NOTE Assessment/Plan (1) Hypoxemia Current Visit: Yes Status: Acute Assessment & Plan: Likely fluid overload. Last 2 O2 sats 96% so can begin weaning down on O2. Still on 9L oximizer currently. Ordered cxr. Code(s): R09.02 - HYPOXEMIA (2) S/P colon resection Current Visit: Yes Status: Acute Assessment & Plan: POD #2, doing much better. The hypoxemia likely from fluid overload. Code(s): Z90.49 - ACQUIRED ABSENCE OF OTHER SPECIFIED PARTS OF DIGESTIVE TRACT (3) Colonic mass Current Visit: Yes Status: Acute Assessment & Plan: Pathology pending. Code(s): K63.9 - DISEASE OF INTESTINE, UNSPECIFIED (4) Alcohol abuse Current Visit: Yes Status: Acute Assessment & Plan: Will decrease her scheduled ativan to 0.5mg as 1 mg made her too sleepy. Code(s): F10.10 - ALCOHOL ABUSE, UNCOMPLICATED (5) Tobacco abuse Current Visit: Yes Status: Acute Assessment & Plan: will start nicotine patch 21mg/d Code(s): Z72.0 - TOBACCO USE (6) Liver lesion Current Visit: Yes Status: Acute Code(s): K76.9 - LIVER DISEASE, UNSPECIFIED
[2017-02-09] MEDS: FLAGYL 500 MG IVPB 500 MG/100 ML BAG IV SCH ×3 (08:43→22:09)
[2017-02-09] MEDS: DILAUDID 1 MG/1ML PCA IV PRN ×2 (08:44→13:39)
[2017-02-09] MEDS: PROTONIX 40 MG IV IV SCH (08:44)
[2017-02-09] MEDS ORDERED: Nicoderm CQ 21 MG TOP SCH (08:45)
--- NOTE | 2017-02-09 08:48 | XRAY ---
Exam: AP upright portable chest film from 8:13 AM on 02/09/2017. Comparison: AP supine portable chest film from 02/07/2017. Indication: Hypoxemia, abdominal surgery 2 days ago. Findings: The transverse heart size is normal. A right jugular central venous catheter is seen in place with the tip pointing inferiorly within the mid SVC. NG tube courses beyond the gastroesophageal junction into the stomach and off the inferior margin of the film, probably at least as far as the antrum. Also, the distal aspect of an apparent Lei-Klein drain is seen at the lower margin of the left upper quadrant of the abdomen. There appears to be interval development of mild airspace disease at the left lung base and peripheral left midlung field. In addition, there is some mild focal discoid atelectasis and/or infiltrate at the medial right lung base adjacent to the medial aspect of the right hemidiaphragm. The remainder of the lung wiggins appears clear. No pneumothorax is seen. No significant pleural fluid is seen. No acute osseous process is seen. Impression: 1. Interval worsening manifested by development of mild bibasilar airspace disease, left greater than right, as discussed above. This could be due to pneumonia. Correlate clinically. 2. Right jugular central venous catheter and NG tube remain in position. A portion of the Lei-Klein drain is seen at the lower margin of the left upper quadrant of the abdomen.
[2017-02-09] MEDS: Ativan 2 MG/1 ML VIAL IV SCH ×3 (09:30→22:15)
[2017-02-09] MEDS: ENOXAPARIN SODIUM SQ SCH ×3 (13:39→22:09)
--- NOTE | 2017-02-09 16:23 | XRAY ---
Exam: CTA of the chest with IV contrast November 09, 2016. CTDI: 13.33 Comparison: AP portable chest film from 02/09/2017. Indication: Elevated d-dimer, history of recent abdominal surgery. Technique: Post-IV contrast axial images were obtained through the chest using the PE protocol. Reconstructed coronal and sagittal images were created and reviewed. Findings: A small segmental thrombus is seen within a branch of the left upper lobe pulmonary artery on axial images #51, #52, and #53 of series #3. In addition, I believe there are a couple focal defects within another branch of the left upper lobe pulmonary artery on axial image #45 of series #3. These findings are consistent with pulmonary emboli. No other filling defects are seen within the pulmonary arteries. The thoracic aorta reveals no evidence of aneurysm or dissection. Right jugular central venous catheter is seen with the tip in the SVC. NG tube extends into the antrum of the stomach. Skin dennys are partially seen within the upper abdominal midline. A Lei-Klein drain is seen overlying the left upper quadrant. Despite the NG tube, moderate fluid is seen within the stomach lumen as well as the esophageal lumen extending up to the level of the medial aspect of the clavicles. I see no abnormal mediastinal or perihilar lymphadenopathy, although there may be some mild reactive lymphadenopathy within the right hilum. However, there are dense posterior bibasilar consolidations, right greater than left, containing air bronchograms consistent with atelectasis and infiltrates. A small posterior left basilar pleural effusion is seen. I also note some less dense patchy infiltrates within the posterior aspect of the left upper lobe and the superior segment of the left lower lobe. On the right side, I also note some additional less pronounced infiltrate within the posterior right midlung field. I'm not sure whether this is located within the posterior inferior portion of the right upper lobe or the superior segment of the right lower lobe. There is also minimal atelectasis/infiltrate within the right middle lobe anterior medially. No pneumothorax is seen. There are some small blebs within the lung apices. There appears to be an intraperitoneal fluid collection lateral to the spleen within the left upper quadrant measuring 1.9 cm in width and at least 8.0 cm in AP depth. The attenuation value of this fluid is somewhat high measuring average of +46.8 Hounsfield units. This could represent ascites with blood products within it. Correlate clinically. In addition, I see an apparent 1.7 cm in diameter cyst within the superior aspect of the spleen on axial image #116. Some calcified splenic granulomas are seen. There appear to be bilateral adrenal nodules. The nodule on the left measures 2.25 cm x 1.7 cm on axial image #125 and the nodule on the right measures approximately 1.0 cm in width and 1.5 cm in AP dimension. The attenuation value of the larger left adrenal lesion is +83.0 Hounsfield units. Therefore, I cannot tell whether these adrenal nodules are benign or malignant by this exam. There is apparent small 1.0 cm in diameter cyst within the lateral segment of the left lobe of the liver on axial image #126. Impression: 1. The CT study reveals 2 or 3 small filling defects within branches of the left upper lobe pulmonary artery consistent with pulmonary emboli. I personally called this report to the floor nurse at 3:45 PM on 02/09/2017. 2. Dense consolidations containing air bronchograms are seen at both posterior lung bases, right larger than left. This is consistent with atelectasis and infiltrates. There also appear to be less pronounced air space infiltrates within the posterior aspect of the right midlung field, anterior medial right lung base within the right middle lobe, the superior segment of the left lower lobe, and the posterior aspect of the left upper lobe. These findings are consistent with bilateral pneumonia. 3. There is also a small posterior layering left pleural effusion. 4. Despite placement of the NG tube, there is moderate fluid within the stomach lumen as well as a moderate amount of fluid within the thoracic esophageal lumen. Correlate clinically regarding reflux. 5. There is a mild amount of fluid attenuation lateral to the spleen within the left upper quadrant which has a higher attenuation than simple ascites. This could represent ascites with some blood products within it. 6. Bilateral adrenal nodules, left larger than right, of indeterminate nature.
[2017-02-10] MEDS: Zosyn 3.375GM/100 Ml D5W 3.375 GM/100 ML IVPB IV SCH (00:25)
[2017-02-10 02:32] LABS: A-aADO2 603; ARTERIAL BLD GAS O2 SATURATION 94.1 % (95-100); ARTERIAL BLOOD GAS FIO2 100 %; ARTERIAL BLOOD GAS PO2 55 mmHg (75-100); ARTERIAL BLOOD GAS pH 7.45 (7.35-7.45)
[2017-02-10] MEDS ORDERED: Versed 50 MG/ 10 Ml MDV ONE (03:02)
[2017-02-10] MEDS ORDERED: FENTANYL 500 MCG/10 ML VIAL IV ONE (03:03)
[2017-02-10] MEDS ORDERED: Sodium Chloride 0.9% 250 ML 250 ML IV ONE (03:04)
[2017-02-10] MEDS ORDERED: Sodium Chloride 0.9% 1000 ML 1,000 ML IV SCH (03:15)
[2017-02-10] MEDS ORDERED: Sodium Chloride 0.9% 1000 ML 1,000 ML ONE (03:28)
[2017-02-10 03:53] VITALS: BP 108/57; PULSE 96
[2017-02-10] MEDS: DILAUDID 1 MG/1ML PCA IV PRN (05:17)
[2017-02-10 05:19] VITALS: O2SAT 99
== END 2017-02-10 04:20 | disposition short-term general hospital (02) | DRG 327 ==
LOC: ED 19:02 → MED SURG 21:41 → OBSVTOIN 02-07 08:38
PROVIDERS: ADMIT Family Medicine; ATTEND Family Medicine
PROC: 0DBL8ZX Excision of Transverse Colon, Via Natural or Artificial Opening Endoscopic, Diagnostic (ICD-10-PCS; principal; 2017-02-07)
PROC: 0DB60ZZ Excision of Stomach, Open Approach (ICD-10-PCS; 2017-02-07)
PROC: 0WJP0ZZ Inspection of Gastrointestinal Tract, Open Approach (ICD-10-PCS; 2017-02-07)
PROC: 0DBL0ZZ Excision of Transverse Colon, Open Approach (ICD-10-PCS; 2017-02-07)
PROC: 0D1L0Z4 Bypass Transverse Colon to Cutaneous, Open Approach (ICD-10-PCS; 2017-02-07)
PROC: 0DB90ZZ Excision of Duodenum, Open Approach (ICD-10-PCS; 2017-02-07)
DX: K63.9 Disease of intestine, unspecified (principal); N39.0 Urinary tract infection, site not specified; K56.60 Unspecified intestinal obstruction; R16.0 Hepatomegaly, not elsewhere classified; R10.12 Left upper quadrant pain; R09.02 Hypoxemia; F10.10 Alcohol abuse, uncomplicated; K76.9 Liver disease, unspecified; F41.9 Anxiety disorder, unspecified; Z72.0 Tobacco use; Z93.3 Colostomy status; Z90.49 Acquired absence of other specified parts of digestive tract
CPT/HCPCS: 00790; 00810; 36000; 36415; 36556; 36600; 71010; 71260; 74176; 76942; 80048; 80053; 81000; 82150; 82375; 82803; 83690; 85025; 85027; 85379; 85610; 85730; 86850; 86900; 86901; 87040; 87086; 88305; 88307; 88309; 88341; 88342; 93268; 94002; 94760; 96360; 96361; 96374; 96375; 99285; G0378; J0330; J0696; J1100; J1170; J1642; J1650; J1940; J2060; J2250; J2270; J2370; J2405; J2543; J2550; J2704; J2710; J3010; L0625; P9047

== ENCOUNTER 2018-01-29 08:33 | Day surgery (SDC) | payer MEDICARE, OTHER ==
[2018-01-29] MEDS ORDERED: Ketamine HCl 50 MG/ML IJ ONE (08:34)
[2018-01-29] MEDS ORDERED: DIPRIVAN 200 MG/20 ML IV ONE (08:34)
[2018-01-29] MEDS ORDERED: Lactated Ringers 1,000 ML IV SCH (09:00)
--- NOTE | 2018-01-29 09:46 | HP ---
DATE OF SURGERY: 01/29/2018 HISTORY OF PRESENT ILLNESS: The patient is a 67 year-old who has history of advanced colon cancer perforating through into the duodenum. She had en bloc resection and has been started on chemotherapy. She failed to follow up in my office over a year ago. She has been following with Dr. Coffey. She is in need of follow up colonoscopy and upper endoscopy. She is interested in considering ostomy. In the past they did partial colectomy as well as en bloc resection of a portion of the duodenum where the tumor was invading. She had CT scan done back in October looked suspicious for angioma, prior urostomy, question of enteritis. PAST MEDICAL HISTORY: She had stable adrenal mass unchanged since a year earlier, degenerative spine disease. PAST SURGICAL HISTORY: Ulcerated perforated colon mass perforating into the organs. Resection, partial colectomy, perforated transverse colon with en bloc with portion of stomach and also resection portion of duodenum with end colostomy. MEDICATIONS: Neurontin. ALLERGIES: NKDA. FAMILY HISTORY: Negative in regards to this problem. SOCIAL HISTORY: Smoker. She drinks some alcohol. REVIEW OF SYSTEMS: Twelve systems reviewed. No chest pain or palpitations other systems negative or noncontributory as above and per preadmission questionnaire. PHYSICAL EXAMINATION: GENERAL: No acute distress. HEENT: Sclerae nonicteric. NECK: No JVD. CHEST: Equal excursion, nonlabored breathing. CVS: Regular rate and rhythm. ABDOMEN: Soft. No peritoneal signs. EXTREMITIES: No significant edema. NEURO: Alert, oriented, moving extremities symmetrically. No gross motor deficits noted. IMPRESSION: Desire for ostomy take down. I feel she needs EGD and colonoscopy for further evaluation to make sure there is no obvious recurrence mucosally prior to considering undertaking it as she had quite advanced disease at the time of her revision operation. She was explained the risks and benefits in detail but not limited to bleeding or infection, risk of bowel injury or perforation possibly requiring open procedure, risk of missed or nondiagnosis or incomplete exam possibly requiring barium enema, other studies or procedures, general risk of anesthesia or sedation but not limited to. She understands and agrees to the planned procedure and will proceed with EGD and colonoscopy as an outpatient.
[2018-01-29] MEDS ORDERED: Sodium Chloride 0.9% 10 ML FLUSH Syringe PORT FLUSH PRN (12:15)
[2018-01-29 13:41] VITALS: O2SAT 98
[2018-01-29 13:53] VITALS: BP 112/65; PULSE 68
--- NOTE | 2018-01-30 08:22 | OP ---
SURGERY DATE/TIME: 01/29/2018 1038 PREOPERATIVE DIAGNOSIS: History of perforated colon cancer involving transverse colon, stomach and duodenum requiring partial duodenectomy, partial gastrectomy, partial colectomy and ostomy. Need for follow up upper and lower endoscopy. POSTOPERATIVE DIAGNOSES: 1) Duodenal polyp. 2) Minimal gastritis. 3) Small hiatal hernia. 4) Small raised lesion rectum. 5) Internal and external hemorrhoids. PROCEDURES: 1) EGD with hot snare polypectomy duodenal polyp. 2) Cold biopsy of the antrum. 3) Cold biopsy more proximal stomach. 4) Colonoscopy anus to transverse colon with hot biopsy removal of small raised rectal lesion versus hyperplastic lesion. 5) Colonoscopy through ostomy to cecum. SURGEON: Dr. Kirk Chavez. ANESTHESIA: MAC. ESTIMATED BLOOD LOSS: Minimal. INDICATIONS: As noted above. Risks and benefits explained in detail and not limited to and consent obtained. DESCRIPTION OF PROCEDURE AND FINDINGS: The patient is taken to the operating room. MAC anesthesia introduced. After official time out and no disagreement with planned procedure, a bite block positioned. Video gastroscope easily passed down the esophagus through the gastroesophageal junction. Z-line was fairly crisp with about 38 - 39 cm to the stomach to the patent pylorus to the junction of the second and third portion of the duodenum. There was definitely a duodenal polyp that looked adenomatous in nature in the first and second portion of the duodenum this was removed with hot snare polypectomy. There had been minimal ooze. Appeared to have good hemostasis after just a few seconds. Again this was taken off with hot snare with brief bursts of cautery. Good hemostasis noted. Partial duodenectomy was deferred previously as there was no obvious gross mass at the prior staple line. The scope was carefully pulled back into the stomach with some minimal gastritis. Cold biopsy taken to evaluate for Helicobacter pylori and CLOtest. There was a little roughened area of the stomach and this was felt this was likely normal variation of the mucosa but given her history of tumor involving the stomach cold biopsy was taken to evaluate for recurrence otherwise revealed the old staple line on the stomach. On retroflex revealed a very small hiatal hernia gastroesophageal junction. The Z-line was fairly crisp. The remainder of the esophagus normal mucosa. The scope is withdrawn. The patient tolerated this part of the procedure well. Attention was then turned to colonoscopy. Placed in lateral position. Digital rectal exam did not reveal any rectal masses. She did have some small internal and external hemorrhoids. Video colonoscope inserted and passed up through the poorly prepped colon with large mucous balls and some stool which limited the exam of the staple line in the transverse colon and carefully withdrawn. There were no signs of any large polyps, masses or obstructing lesions. She had a few diverticula. There was a small raised lesion versus hyperplastic lesion versus early polyp in the rectum removed with hot biopsy forceps with brief bursts of cautery. Good hemostasis noted. Otherwise she had some internal and external hemorrhoids. There were no signs of any large masses. The scope is withdrawn. Attention is then turned to the more proximal remnant of colon through the ostomy around to the cecum, the valve and appendiceal orifice visualized. Prep was poor with liquidy semi-solid stool limiting the exam. The scope slowly and carefully withdrawn. There were no signs of any large polyps, masses or obstructing lesions visible intraluminally. The patient tolerated the procedure well. Findings discussed with the family out in the waiting area.
== END 2018-01-29 12:35 | disposition home or self-care (01) ==
LOC: SDC 08:33
PROVIDERS: ATTEND Surgery
DX: K31.7 Polyp of stomach and duodenum (principal); Z09 Encounter for follow-up examination after completed treatment for conditions other than malignant neoplasm; K29.70 Gastritis, unspecified, without bleeding; K44.9 Diaphragmatic hernia without obstruction or gangrene; K62.89 Other specified diseases of anus and rectum; K64.8 Other hemorrhoids; K64.4 Residual hemorrhoidal skin tags; Z90.49 Acquired absence of other specified parts of digestive tract; Z93.3 Colostomy status; Z90.3 Acquired absence of stomach [part of]
CPT/HCPCS: 87081; 88305; 94250; J1642; J2704

== ENCOUNTER 2018-02-27 07:09 | Inpatient (IN) | payer MEDICARE, OTHER ==
--- NOTE | 2018-02-26 13:14 | HP ---
DATE OF SURGERY: 02/27/2018 HISTORY OF PRESENT ILLNESS: The patient is a 67 year-old female with colon cancer perforating through involving her stomach and duodenum. She underwent resection and then colostomy in the past. She underwent chemotherapy. Her oncologist felt she could consider ostomy take-down. PAST MEDICAL HISTORY: She had obstructing, ulcerated, perforated colon cancer resection and then colostomy, resection of part of the duodenum and part of the stomach and underwent colostomy at the time for colon cancer. PAST SURGICAL HISTORY: As noted above and also had a port placed in the past. Colonoscopy with no obvious towards anus as well as ileostomy and cecum. No obvious masses inside the colon. She had a small tubular adenoma of duodenum that was removed but no dysplasia. CLOtest negative. She had small tubular adenoma in the rectosigmoid area but no dysplasia. MEDICATIONS: Neurontin. ALLERGIES: NKDA. FAMILY HISTORY: Negative in regards to this problem. SOCIAL HISTORY: She drinks alcohol but denies abuse. REVIEW OF SYSTEMS: Twelve systems reviewed per admission assessment. No chest pain or palpitations other systems negative or noncontributory as above and per preadmission questionnaire. She had no gross signs of recurrence on CT scan in the past. PHYSICAL EXAMINATION: GENERAL: No acute distress. HEENT: Sclerae nonicteric. NECK: No JVD. CHEST: Equal excursion, nonlabored breathing. CVS: Regular rate and rhythm. ABDOMEN: Soft. Ostomy in place. No peritoneal signs. EXTREMITIES: No edema. NEURO: Alert, moving extremities symmetrically. No gross motor deficits noted. IMPRESSION: History of colon cancer perforated to the stomach and duodenum requiring partial duodenectomy and partial gastrectomy in the past. She desires first ostomy take-down. I feel she is a candidate as her oncologist does not feel she has recurrence at the moment. She was explained the risks and benefits of the procedure in detail. Will attempt laparoscopy but with resection in the past may need to be an open procedure. There is a possibility of risk of bleeding or infection, risk of wound complications or dehiscence or hernia, risk of trocar blood vessel, bowel, bladder, ureter and/or splenic issues or injury. Discussed overall risk of anastomotic complications, failure to heal, necrosis, leak, abscess formation or fistula formation possibly requiring other procedures or even new diverting ostomy. General risk of anesthesia, deep venous thrombosis, pulmonary embolism, pneumonia, risk of cardiopulmonary event, risk of postoperative ileus or obstruction. Possibility that she could have evidence of carcinomatosis and may not be a candidate for ostomy take-down at this point, explained backing out of the procedure. She understands all the above and she understands. It does not seem adequate to reanastomosis given her prior anastomosis of small bowel to her left colon depending on operative findings. She will have loose stools. She understands all the above but not limited to. Will proceed with same day laparoscopic ostomy take-down possible open and possible partial colectomy. Good bowel prep on laxative protocol.
[~2018-02-27 07:09] MED LIST: Lactated Ringers 1,000 ML IV ONE; Sensorcaine 0.25% 10 ML ONE
[2018-02-27] MEDS ORDERED: ENTEREG 12 MG PO ONE (07:17)
[2018-02-27] MEDS ORDERED: Lactated Ringers 1,000 ML IV ONE ×3 (07:21→11:26)
[2018-02-27] MEDS ORDERED: MEFOXIN 2 GM PREMIX** 2 GM/50 ML ML IV ONE (07:21)
[2018-02-27] MEDS ORDERED: Lactated Ringers 1,000 ML IV SCH (07:30)
[2018-02-27] MEDS ORDERED: MEFOXIN 2 GM PREMIX** 2 GM/50 ML ML IV SCH (08:00)
[2018-02-27 09:13] LABS: ABO TYPING B; Antibody Screen NEGATIVE (NEGATIVE); RH TYPING POSITIVE
[2018-02-27] MEDS ORDERED: Zofran 4 MG/2 ML VIAL ONE (13:46)
[2018-02-27] MEDS ORDERED: Sodium Chloride 3 ML UD NEBULES IH ONE (13:48)
[2018-02-27] MEDS ORDERED: Xopenex 1.25 MG/0.5 ML UD NEBULE IH ONE ×2 (13:48→13:50)
[2018-02-27] MEDS ORDERED: SUBLIMAZE 100 MCG/2 ML ONE (13:50)
[2018-02-27] MEDS: Morphine PCA 1 MG/ML 30 ML IV PRN (14:11)
[2018-02-27 14:55] LABS: Appearance CLEAR (CLEAR); Leukocyte Esterase NEGATIVE (NEGATIVE); Nitrite NEGATIVE (NEGATIVE); Protein,Urine Dip 30 (Negative); Specific Gravity 1.015 (1.005-1.025)
[2018-02-27 14:56] LABS: Bacteria FEW /HPF (NEGATIVE); Bilirubin NEGATIVE (NEGATIVE); Epithelial Cells FEW /HPF (FEW); Glucose NEGATIVE (NEGATIVE); Hyaline Casts 25-50 /LPF (0-2); Ketones NEGATIVE (NEGATIVE); Urobilinogen NORMAL mg/dL (0-1)
[2018-02-27] MEDS ORDERED: Zofran 4 MG/2 ML VIAL IV PRN (14:57)
[2018-02-27] MEDS: D5W/0.45NS W/ 20mEq KCl 1000 ML 1,000 ML IV SCH (15:24)
[2018-02-27] MEDS ORDERED: Marcaine 0.5%/Epinephrine 10 ML IJ ONE (15:31)
[2018-02-27] MEDS ORDERED: Zemuron 100 MG/10 ML IV ONE (15:31)
[2018-02-27] MEDS ORDERED: DIPRIVAN 200 MG/20 ML IV ONE (15:31)
[2018-02-27] MEDS ORDERED: Decadron 4 MG INJ IV ONE (15:31)
[2018-02-27] MEDS ORDERED: SUBLIMAZE 100 MCG/2 ML IV ONE (15:31)
[2018-02-27] MEDS ORDERED: DILAUDID 2 MG INJECTION IV ONE (15:31)
[2018-02-27] MEDS ORDERED: Quelicin Fliptop 200 MG/10 ML IV ONE (15:31)
[2018-02-27] MEDS ORDERED: Naropin 0.5% 30 ML VIAL IJ ONE (15:31)
[2018-02-27] MEDS ORDERED: Zofran 4 MG/2 ML VIAL IV ONE (15:31)
[2018-02-27] MEDS ORDERED: BRIDION 200MG/2ML IV ONE (15:31)
[2018-02-27] MEDS ORDERED: TORAdol 30 mg Injection IV ONE (15:31)
--- NOTE | 2018-02-27 15:51 | OP ---
SURGERY DATE/TIME: 02/27/2018 0931 PREOPERATIVE DIAGNOSES: 1) History of perforated colon cancer perforated into stomach and duodenum status post partial colectomy, end colostomy, partial gastrectomy, partial duodenectomy. 2) Undesired colostomy. POSTOPERATIVE DIAGNOSES: 1) History of perforated colon cancer perforated into stomach and duodenum status post partial colectomy, end colostomy, partial gastrectomy, partial duodenectomy. 2) Undesired colostomy. 3) Extensive intra-abdominal adhesions requiring open procedure. PROCEDURES: 1) Laparoscopy. 2) Open extensive enterolysis of adhesions (complete enterolysis) added an extra hour and a half to two hours for the case. 3) Partial right colectomy (cystic nodule on right colon requiring resection for pathologic evaluation). 4) Take down colostomy. 5) Primary ileo-descending colon reanastomosis. SURGEON: Dr. Kirk Chavez. ANESTHESIA: General. ESTIMATED BLOOD LOSS: Less than 50 to 100 cc probably less. INDICATIONS: As noted above. Risks and benefits explained in detail and not limited to and consent obtained. DESCRIPTION OF PROCEDURE AND FINDINGS: The patient is taken to the operating room. General anesthesia introduced. Abdomen prepped and draped in usual sterile fashion. Left low lithotomy position for a chance that later on endoscopy from down below. She had been prepped and draped in usual sterile fashion. After official time out and no disagreement with planned procedure, a transverse incision made with left to the midline incision. Free flow with Veress needle was accomplished. Insufflation to get higher pressures. It was felt there is extensive scar tissue. Therefore it was elected to put a wound protector Gelport in. Dissection was carried down through the linea alba through the old scar. Extensive intra-abdominal adhesions excised around the wound area to allow for placement of a Gelport. Insufflated and a 5 port placed in the right lower quadrant in a free space. However there were too many extensive intra-abdominal adhesions particularly the small bowel to allow for safe continued progress of the procedure. It was felt it would be safest to continue through the Gelport wound incision. It was just slightly enlarged and opened complete to extensive enterolysis was then accomplished from the ligament of Treitz to the cecum. Complete enterolysis accomplished. It added an extra hour and a half to two hours to the case. There were some adhesions in the descending colon limb this was freed and the former staple line was noted and this was carefully freed allowing to mobilize upwards to allow for reanastomosis. However more proximally at this point the ostomy had been closed just prior to prepping the abdomen with some Vicryl suture. A spindle-shaped skin incision was accomplished dissecting down in the ostomy from the fascia allowing it to be dropped back down in the abdomen as part of the ostomy given all adhesions were gone. Raw serosal areas in this part were transected and passed off at this point. At this point careful inspection right colon there were a couple cystic gelatinous areas. There was question whether she had prior cancer whether this was mucinous carcinoma tumor nodules or not. There was no frozen section here available. As this is a short piece of right colon and did not appear to be readily reach the left colon to allow for safe anastomosis with good supply in a tension free manner, it was felt best to transect it to terminal ileum to allow for an ileo-descending colonic anastomosis. It was felt it would have a much better chance at healing being much more tension-free with good supply. Additionally, in the right colon it had cystic gelatinous nodules will be sent for path to evaluate whether there was mucinous carcinoma or implants as she had prior perforated colon cancer. Therefore the right colon was mobilized white line of Toldt mobilizing it upward anteriorly to the duodenum freeing it from the omentum. Mesentery taken down divided and ligated with a combination of clamps, Vicryl ties and LigaSure device. Terminal ileum had been transected with RONEY stapler. At this point the colon was passed off. There is a suture marking area where the gelatinous nodule was noted for pathology. Good hemostasis was noted. The end of the ileum was carefully laid alongside the descending colon. As the old piece of descending colon had a little bit of gelatinous tissue on the staple line itself, this colon was transected more proximally to free part of the descending colon to allow for fresh staple line and this piece was passed off for pathology of the descending colon. [id number] ileo-descending colon anastomosis created with posterior row of 3-0 PDS pop-off [id number] staple anastomosis created with a new stapler. The stump was closed with TA-stapler and then over sewn with 3-0 PDS. The mesenteric defect closed with 3-0 PDS. It should be noted that this anastomosis to the inside had prior to closing with TA-stapler had good hemostasis and then on the outside the mesentery had good pulsatile flow so definitely had excellent blood supply. This tension-free viable healthy anastomosis is widely patent. Copious amount of irrigation irrigating until clear. Again, complete enterolysis had been accomplished. There were no signs of any issues with the small bowel. One raw area of adhesions were over sewn to allow it to overlap on itself with 3-0 PDS. There is no evidence of any enterotomy or any other issues. Copious amount of irrigation irrigating until clear. The stomach was grossly unremarkable. The liver was smooth. At this point the posterior rectus fascia ostomy defect closed with 0 PDS. It was also used to close the anterior fascia on the outside. Copious amount of irrigation irrigating until clear. At this point clean gloves and instruments were used. After copious amount irrigation irrigating until clear, needle instruments, lap count was correct x2. The midline fascia closed with running looped sequential 0 PDS. Subcu irrigated out. Skin stapled. Some Iodoform packing placed in between to allow for any drainage. At this DIONICIO drain left in the pelvis without direct communication with the anastomosis itself out through where the port wound had been in left lower quadrant. Copious amount of irrigation irrigating the ostomy wound. It was then closed with interrupted 3-0 Vicryl deep dermis and subcu. Skin was loosely stapled. Some Iodoform packing placed in between to be gradually advanced out over the next few days starting on day two. The patient was given sterile dressing, abdominal binder. She tolerated the procedure well. There were no immediate complications. Findings discussed with the family out in the waiting room.
[2018-02-27] MEDS: NEURONTIN 300 MG PO SCH (17:10)
[2018-02-27] MEDS: Zosyn 3.375GM/100 Ml D5W 3.375 GM/100 ML IVPB IV SCH ×2 (17:10→23:36)
[2018-02-28] MEDS: D5W/0.45NS W/ 20mEq KCl 1000 ML 1,000 ML IV SCH (03:32)
[2018-02-28 05:50] LABS: Hematocrit 37.2 % (35-47); Hemoglobin 12.5 gm/dl (12.0-16.0); Mean Cell Volume 97.6 fl (78-100); Mean Corpuscular Hemoglobin 32.8 pg (26-32); Mean Corpuscular Hgb Concent. 33.6 g/dl (32-36); Mean Platelet Volume 10.4 fl (6-9.5); Platelet Count 215 K/mm3 (150-450); Red Blood Count 3.81 M/mm3 (4.1-5.4); Red Cell Distribution Width 12.2 % (11.5-14.0); White Blood Count 21.3 K/mm3 (4.0-10.5)
[2018-02-28] MEDS: Zosyn 3.375GM/100 Ml D5W 3.375 GM/100 ML IVPB IV SCH ×3 (05:53→17:12)
[2018-02-28 06:12] LABS: ANION GAP 11.2 MEQ/L (5-15); BLOOD UREA NITROGEN 11 mg/dL (7-17); CHLORIDE 104 mmol/L (98-107); Calcium 8.5 mg/dL (8.4-10.2); Carbon Dioxide 27 mmol/L (22-30); Creatinine 1 0.82 mg/dL (0.52-1.04); Glucose 151 mg/dL (74-106); Potassium 5.3 mmol/L (3.5-5.1); SODIUM 137 mmol/L (137-145)
[2018-02-28] MEDS ORDERED: Ambien 10 MG PO PRN (07:54)
[2018-02-28] MEDS: ENOXAPARIN SODIUM SQ SCH (08:05)
[2018-02-28] MEDS: NEURONTIN 300 MG PO SCH (09:02)
[2018-02-28] MEDS: ENTEREG 12 MG PO SCH ×2 (09:02→21:26)
[2018-02-28] MEDS: NICOTINE PATCH 7MG TD SCH (09:02)
[2018-02-28] MEDS: Morphine PCA 1 MG/ML 30 ML IV PRN (12:23)
[2018-03-01] MEDS: Zosyn 3.375GM/100 Ml D5W 3.375 GM/100 ML IVPB IV SCH ×4 (00:26→18:05)
[2018-03-01 05:50] LABS: BASOPHIL % 0.4 % (0.0-0.4); Basophil (Absolute #) 0.06 (0-0.4); Eosinophil % 0.4 % (0.00-5.0); Eosinophil (Absolute #) 0.06 (0-0.5); Granulocyte Absolute (ANC) 11.07 (1.4-6.9); Granulocytes % 81.5 % (36.0-66.0); Hematocrit 34.6 % (35-47); Hemoglobin 11.4 gm/dl (12.0-16.0); Lymphocytes % 9.6 % (24.0-44.0); Mean Cell Volume 98.6 fl (78-100); Mean Corpuscular Hgb Concent. 32.9 g/dl (32-36); Mean Platelet Volume 10.5 fl (6-9.5); Monocytes % 8.1 % (0.0-12.0); Platelet Count 178 K/mm3 (150-450); Red Blood Count 3.51 M/mm3 (4.1-5.4); Red Cell Distribution Width 12.4 % (11.5-14.0); White Blood Count 13.6 K/mm3 (4.0-10.5)
[2018-03-01 05:58] LABS: Mean Corpuscular Hemoglobin 32.4 pg (26-32)
[2018-03-01 06:12] LABS: ALBUMIN 3.1 g/dL (3.5-5.0); ALKALINE PHOSPHATASE 44 U/L (38-126); ANION GAP 7.3 MEQ/L (5-15); BLOOD UREA NITROGEN 8 mg/dL (7-17); CHLORIDE 107 mmol/L (98-107); Calcium 8.3 mg/dL (8.4-10.2); Carbon Dioxide 28 mmol/L (22-30); Creatinine 1 0.77 mg/dL (0.52-1.04); Glucose 97 mg/dL (74-106); Potassium 4.2 mmol/L (3.5-5.1); SGOT/AST 29 U/L (14-36); SGPT/ALT 28 U/L (0-35); SODIUM 138 mmol/L (137-145); Total Protein 5.4 g/dL (6.3-8.2)
[2018-03-01] MEDS: ENOXAPARIN SODIUM SQ SCH (09:27)
[2018-03-01] MEDS: ENTEREG 12 MG PO SCH ×2 (09:27→21:38)
[2018-03-01] MEDS: NICOTINE PATCH 7MG TD SCH (09:27)
[2018-03-01] MEDS: NEURONTIN 300 MG PO SCH (09:27)
[2018-03-02] MEDS: Zosyn 3.375GM/100 Ml D5W 3.375 GM/100 ML IVPB IV SCH ×2 (01:13→07:00)
[2018-03-02] MEDS: Morphine PCA 1 MG/ML 30 ML IV PRN (03:54)
[2018-03-02 05:31] LABS: BASOPHIL % 0.3 % (0.0-0.4); Basophil (Absolute #) 0.03 (0-0.4); Eosinophil % 2.3 % (0.00-5.0); Eosinophil (Absolute #) 0.21 (0-0.5); Granulocyte Absolute (ANC) 7.05 (1.4-6.9); Granulocytes % 76.3 % (36.0-66.0); Hematocrit 34.2 % (35-47); Hemoglobin 11.5 gm/dl (12.0-16.0); Lymphocyte (Absolute #) 1.09 (1.0-4.6); Lymphocytes % 11.8 % (24.0-44.0); Mean Cell Volume 96.3 fl (78-100); Mean Corpuscular Hgb Concent. 33.6 g/dl (32-36); Mean Platelet Volume 9.8 fl (6-9.5); Monocyte (Absolute #) 0.86 (0.0-1.3); Monocytes % 9.3 % (0.0-12.0); Platelet Count 187 K/mm3 (150-450); Red Blood Count 3.55 M/mm3 (4.1-5.4); Red Cell Distribution Width 12.2 % (11.5-14.0); White Blood Count 9.2 K/mm3 (4.0-10.5)
[2018-03-02 05:34] LABS: Mean Corpuscular Hemoglobin 32.3 pg (26-32)
[2018-03-02 05:48] LABS: BLOOD UREA NITROGEN 5 mg/dL (7-17); CHLORIDE 104 mmol/L (98-107); Calcium 8.4 mg/dL (8.4-10.2); Carbon Dioxide 27 mmol/L (22-30); Creatinine 1 0.68 mg/dL (0.52-1.04); Glucose 94 mg/dL (74-106); Potassium 3.5 mmol/L (3.5-5.1); SODIUM 137 mmol/L (137-145)
[2018-03-02] MEDS: ENOXAPARIN SODIUM SQ SCH (07:41)
[2018-03-02] MEDS: NORCO 5/325 MG PO PRN ×4 (07:41→19:35)
[2018-03-02] MEDS: NICOTINE PATCH 7MG TD SCH (09:53)
[2018-03-02] MEDS: ENTEREG 12 MG PO SCH (09:53)
[2018-03-02] MEDS ORDERED: NEURONTIN 300 MG PO SCH (10:00)
[2018-03-02 16:26] VITALS: BP 113/64; PULSE 62; O2SAT 96
--- NOTE | 2018-03-07 11:07 | DS ---
ADMISSION DIAGNOSIS: History of perforated colon cancer status post partial colectomy, partial gastrectomy, partial duodenectomy, now undesired colostomy. DISCHARGE DIAGNOSIS: HISTORY OF PERFORATED COLON CANCER STATUS POST PARTIAL COLECTOMY, PARTIAL GASTRECTOMY, PARTIAL DUODENECTOMY, NOW UNDESIRED COLOSTOMY. PROCEDURE: Please see operative note. HOSPITAL COURSE: The patient was admitted and underwent ostomy takedown, extensive lysis of adhesions. She had extensive small bowel adhesions. She had very small proximal right piece of colon was not safely mobilized to allow for safe reanastomosis of the descending colon therefore she underwent partial colectomy with mobilization of the ileum over to the descending colon and ileo descending colonic reanastomosis. She began having bowel movements. She was advanced to full liquids and tolerating it well. She was only using [place] intermittently and was doing well and wanted to be discharged home today. The incision was clean. Her bladimir are being advanced out. Her DIONICIO was serosanguineous clear. Her abdomen was soft so she will be discharged home in good condition. She is to follow up in the office in 7 to 10 days. Avoid heavy lifting, regular diet. She is to resume regular diet and activities as tolerated other than avoiding heavy lifting or straining. Discharged home in good condition.
--- NOTE | 2018-03-07 11:14 | DS ---
DISCHARGE DIAGNOSES: 1) COLON CANCER. 2) REVERSAL OF COLOSTOMY. PROCEDURE Colostomy takedown by Dr. Justin Chavez. HOSPITAL COURSE: The patient is a 67 year-old white female who presented for elective takedown of colostomy. We were asked to see the patient for medical management per surgery. The patient did well. She did initially have significant elevation of white blood cell count above 21,000. She was kept on IV Zosyn for three days. The white count normalized. The patient began having good bowel sounds and bowel movements and was taking minimal pain medication. She requested to go home on the afternoon of 03/02/2018 and surgeon gave his blessing for discharge. She was therefore discharged home on the afternoon of 03/02/2018 with instructions to follow up with the surgeon later the next week. She is to return to the hospital for any problems in the interim. She was sent home with prescription for [place] 10/325 mg for pain control.
== END 2018-03-02 19:10 | disposition home or self-care (01) | DRG 331 ==
LOC: MED SURG 07:09 → EDSTATUS 15:27
PROVIDERS: ADMIT Surgery; ATTEND Surgery
PROC: 0DNW0ZZ Release Peritoneum, Open Approach (ICD-10-PCS; principal; 2018-02-27)
PROC: 0DBE0ZZ Excision of Large Intestine, Open Approach (ICD-10-PCS; 2018-02-27)
PROC: 0DSN4ZZ Reposition Sigmoid Colon, Percutaneous Endoscopic Approach (ICD-10-PCS; 2018-02-27)
DX: C18.9 Malignant neoplasm of colon, unspecified (principal); K66.0 Peritoneal adhesions (postprocedural) (postinfection); Z90.49 Acquired absence of other specified parts of digestive tract; Z90.3 Acquired absence of stomach [part of]; Z93.3 Colostomy status; R19.07 Generalized intra-abdominal and pelvic swelling, mass and lump
CPT/HCPCS: 36415; 64488; 76937; 76942; 80048; 80053; 81000; 85025; 85027; 86850; 86900; 86901; 87086; 88302; 88304; 88305; 88307; 88341; 88342; 94010; 94250; 94640; 94760; 94762; J0330; J0694; J1100; J1170; J1650; J1885; J2270; J2405; J2543; J2704; J2795; J3010; L0625; A9270-GY

== ENCOUNTER 2021-02-22 09:20 | Day surgery (SDC) | payer MEDICARE, OTHER ==
--- NOTE | 2021-02-22 08:47 | HP ---
DATE OF SURGERY: 02/22/2021 HISTORY OF PRESENT ILLNESS: The patient is a 70 year-old who had locally advanced colon cancer resected in the past. She had a major colon resection. She had endoscopy and ostomy reversal in the past. Family history of heart disease and arthritis. PAST MEDICAL HISTORY: History of colon cancer in the past. PAST SURGICAL HISTORY: She had a major colon resection, endoscopy and ostomy reversal in the past. MEDICATIONS: Neurontin, ibuprofen, pyridoxine, vitamin B6, vitamin B12. ALLERGIES: NKDA. FAMILY HISTORY: Negative in regards to this problem. SOCIAL HISTORY: She drinks alcohol on occasion. Half pack per day smoker in the past. She used some marijuana in the past. REVIEW OF SYSTEMS: Fourteen systems reviewed. No chest pain or palpitations. Other systems negative or noncontributory as above and per preadmission questionnaire. PHYSICAL EXAMINATION: GENERAL: No acute distress. HEENT: Sclerae nonicteric. NECK: No JVD. CHEST: Equal excursion, nonlabored breathing. CVS: Regular rate and rhythm. ABDOMEN: Soft. No peritoneal signs. EXTREMITIES: No significant edema. NEURO: Alert, oriented, moving extremities symmetrically. RECTAL: Deferred timed to endoscopy exam. PSYCH: Appropriate mood and affect. IMPRESSION: History of colon cancer, need follow up colonoscopy. Risks and benefits explained in detail including but not limited to bleeding or infection, risk of bowel injury or perforation possibly requiring open procedure, risk of missed or nondiagnosis or incomplete exam possibly requiring barium enema, other studies or procedures, general risk of anesthesia or sedation, risk of bowel injury but not limited, consent obtained. Will proceed with outpatient follow up screening colonoscopy given personal history of colon cancer.
[~2021-02-22 09:20] MED LIST changes: +Lactated Ringers 1,000 ML IV SCH; -Sensorcaine 0.25% 10 ML ONE
[2021-02-22 09:39] VITALS: O2SAT 98
[2021-02-22] MEDS ORDERED: DIPRIVAN 200 MG/20 ML IV ONE (11:42)
[2021-02-22] MEDS ORDERED: Sodium Chloride 0.9% 10 ML FLUSH Syringe PORT FLUSH PRN (13:00)
[2021-02-22 13:03] VITALS: BP 112/62; PULSE 78
--- NOTE | 2021-02-23 11:01 | OP ---
SURGERY DATE/TIME: 02/22/2021 1142 PREOPERATIVE DIAGNOSIS: Prior history of colon cancer status post resection and treatment, need for follow up screening colonoscopy. POSTOPERATIVE DIAGNOSES: 1) No evidence of any anastomotic recurrence. 2) Tortuous colon. 3) Fair bowel prep. 4) ASA Class II. PROCEDURE: Colonoscopy to ileum. Withdrawal time around six minutes. SURGEON: Dr. Kirk Chavez. ANESTHESIA: MAC. ESTIMATED BLOOD LOSS: Minimal. INDICATIONS: As noted above. Risks and benefits explained in detail but not limited to and consent obtained. DESCRIPTION OF PROCEDURE AND FINDINGS: The patient is taken to the endoscopy room. MAC anesthesia introduced. After official time out and no disagreement with planned procedure digital rectal exam did not reveal any rectal masses. Video colonoscope passed up through the tortuous sigmoid, descending, transverse colon around to the ileocolonic anastomotic site which was widely patent. No evidence of recurrence. Prep overall was fair. There was a little bit of liquidy semi-solid stool that was suction irrigated as clear as possible just slightly limiting the exam for very tiny lesions. Otherwise the scope is slowly and carefully withdrawn. There were no signs of any large polyps, masses or obstructing lesions. She tolerated the procedure well. There were no immediate complications. It is felt she is a candidate to consider taking her port out if it is okay per her oncologist.
== END 2021-02-22 12:55 | disposition home or self-care (01) ==
LOC: SDC 09:20
PROVIDERS: ATTEND Surgery
DX: Z12.11 Encounter for screening for malignant neoplasm of colon (principal); Z08 Encounter for follow-up examination after completed treatment for malignant neoplasm; Z85.038 Personal history of other malignant neoplasm of large intestine; Z90.49 Acquired absence of other specified parts of digestive tract; Z79.899 Other long term (current) drug therapy
CPT/HCPCS: J1642; J2704

== ENCOUNTER 2021-03-29 12:04 | Day surgery (SDC) | payer MEDICARE, OTHER ==
[~2021-03-29 12:04] MED LIST changes: -Lactated Ringers 1,000 ML IV SCH; +XYLOCAINE 1% HCL 20 ML MDV ONE
[2021-03-29] MEDS ORDERED: KEFZOL 1 GM IV ONE (12:05)
--- NOTE | 2021-03-29 13:06 | HP ---
PROCEDURE DATE: 03/29/2021 HISTORY OF PRESENT ILLNESS: The patient is a 70 y/o who has a local advanced colon cancer in the past. Required resection. Later had ostomy reversal in the past. Has had colonoscopy, obvious colon cancer recurrence. PAST MEDICAL HISTORY: As mentioned above. CURRENT MEDICATIONS: Advil, vitamin B6, vitamin B12, gabapentin. ALLERGIES: NKDA. PAST SURGICAL HISTORY: FAMILY HISTORY: Arthritis and colon cancer. SOCIAL HISTORY: No alcohol abuse. REVIEW OF SYSTEMS: 14 systems reviewed. No chest pain or palpitations. Other systems negative or noncontributory other than above and per preadmission questionnaire. Her oncologist has given the okay to remove her port as she does not have any treatments at this time. She presents for port removal, excisional biopsy enlarging back lesion. PHYSICAL EXAMINATION: GENERAL: No acute distress. HEENT: Sclerae nonicteric. NECK: No JVD. CHEST: Equal excursion. Nonlabored breathing. CVS: Regular rate and rhythm. ABDOMEN: Soft. No peritoneal signs. EXTREMITIES: No cyanosis. NEURO: Alert, moving extremities symmetrically. PSYCH: Appropriate mood and affect. BACK: She has got a back lesion turned to anger and needs excision. IMPRESSION: UNDESIRED PORT-A-CATH. HISTORY OF COLON CANCER, BUT NO LONGER USING PORT FOR TREATMENT. DESIRES REMOVAL. AT THE SAME TIME, NEEDS EXCISION OF THIS ENLARGING LESION ON HER BACK. Risks and benefits explained in detail, including bleeding; infection; risk of wound dehiscence or infection possibly requiring packing; risk of malignancy possibly requiring wider excision at a later date with regard to the back lesion; the possibility of the port being scarred in may only be able to remove the port and not the catheters; risk of anesthesia or sedation. Consent obtained. Will proceed with excision and biopsy of lesion of the back as well as removal of Port-a-Cath as an outpatient.
[2021-03-29] MEDS ORDERED: Lactated Ringers 1,000 ML IV SCH (13:30)
[2021-03-29] MEDS ORDERED: DIPRIVAN 200 MG/20 ML IV ONE (14:40)
[2021-03-29] MEDS ORDERED: SUBLIMAZE 100 MCG/2 ML ONE (14:40)
[2021-03-29] MEDS ORDERED: Versed 2 MG/2 ML Injection ONE (14:40)
[2021-03-29 15:53] VITALS: PULSE 75; O2SAT 97
[2021-03-29 16:23] VITALS: BP 129/70
--- NOTE | 2021-03-30 14:27 | OP ---
SURGERY DATE: 03/29/2021 SURGERY TIME: 1437 PREOPERATIVE DIAGNOSIS: 1. HISTORY OF COLON CANCER, UNDESIRED PORT-A-CATH. 2. HISTORY OF ENLARGING LESION OF INDETERMINATE BEHAVIOR BACK THAT NEEDS EXCISION. POSTOPERATIVE DIAGNOSIS: 1. HISTORY OF COLON CANCER, UNDESIRED PORT-A-CATH. 2. HISTORY OF ENLARGING LESION OF INDETERMINATE BEHAVIOR BACK THAT NEEDS EXCISION, PATH PENDING. PROCEDURE: 1. Excisional biopsy 2.5 cm back lesion indeterminate behavior with intermediate closure. 2. Removal of tunneled Port-a-Cath. SURGEON: Dr. Kirk Chavez. ANESTHESIA: MAC. ESTIMATED BLOOD LOSS: Minimal. INDICATIONS: As noted above. Risks and benefits explained in detail, but not limited to. Consent obtained. DESCRIPTION OF PROCEDURE AND FINDINGS: The patient was taken to the OR. Lateral position. Back was prepped in the usual sterile fashion. Official time-out. No disagreement in planned procedure. 1% Lidocaine local was infiltrated in a field pattern around the area. Spindle shaped excision out to normal-appearing skin on either side of this exophytic lesion. Dissection carried down to normal-appearing subcutaneous tissue dissecting off the underlying fascia. Specimen passed off. Measured about 2.5 cm in size, the lesion itself. Hemostasis controlled with pinpoint cautery. Good hemostasis noted. The wound was then closed in layers, interrupted 3-0 Vicryl closing the deep and superior subq, skin closed with 4-0 Vicryl. Interrupted 3-0 Prolene used to reinforce the wound. Steri-strips and sterile pressure dressing applied. Patient tolerated the procedure well. There were no immediate complications with this portion of the procedure. The patient was placed in the supine position. Prepped and draped in the usual sterile fashion. 1% Lidocaine local was infiltrated in a field pattern around her old port. Dissection carried down through the old scar, down to the port area itself. Two Prolene sutures were removed. The port and catheter were freed from their attachments to the fibrous pocket. Pulled free intact and passed off. The tunnel tract closed with 3-0 Vicryl, the fibrous pocket closed with 3-0 Vicryl, subq closed with 3-0 Vicryl, skin closed with 4-0 Vicryl. Steri-strips and sterile dressing applied. The patient tolerated the procedure well. There was no family here to discuss any findings out in the waiting area.
== END 2021-03-29 16:23 | disposition home or self-care (01) ==
LOC: SDC 12:04
PROVIDERS: ATTEND Surgery
DX: Z45.2 Encounter for adjustment and management of vascular access device (principal); Z85.038 Personal history of other malignant neoplasm of large intestine; L91.8 Other hypertrophic disorders of the skin
CPT/HCPCS: 88304; J0690; J2250; J2704; J3010

== ENCOUNTER 2022-01-15 22:47 | Emergency (ER) | payer MEDICARE, OTHER ==
[2022-01-15 23:27] LABS: Basophil (Absolute #) 0.11 x10^3/uL (0-0.4); Eosinophil % 3.4 % (0.00-5.0); Eosinophil (Absolute #) 0.26 x10^3/uL (0-0.5); Hematocrit 36.9 % (35-47); Hemoglobin 12.1 g/dL (12.0-16.0); Lymphocyte (Absolute #) 3.12 x10^3/uL (1.0-4.6); Lymphocytes % 40.9 % (24.0-44.0); Mean Cell Volume 99.7 fL (78-100); Mean Corpuscular Hemoglobin 32.7 pg (26-32); Mean Corpuscular Hgb Concent. 32.8 g/dL (32-36); Mean Platelet Volume 9.9 fL (7.5-11.0); Monocytes % 7.9 % (0.0-12.0); Platelet Count 236 x10^3/uL (150-450); Red Cell Distribution Width 12.2 % (11.5-14.0); White Blood Count 7.6 x10^3/uL (4.0-10.5)
[2022-01-15 23:38] LABS: ALBUMIN 3.8 g/dL (3.5-5.0); ALKALINE PHOSPHATASE 67 U/L (38-126); ANION GAP 13.7 MEQ/L (5-15); BLOOD UREA NITROGEN 9 mg/dL (7-17); CHLORIDE 102 mmol/L (98-107); Calcium 8.1 mg/dL (8.4-10.2); Carbon Dioxide 18 mmol/L (22-30); EST GLOMERULAR FILTRATION RATE > 60.0 ML/MIN; ETHYL ALCOHOL 134 mg/dL (0-10); Glucose 93 mg/dL (74-106); Potassium 3.6 mmol/L (3.5-5.1); SGOT/AST 33 U/L (14-36); SGPT/ALT 20 U/L (0-35); SODIUM 130 mmol/L (137-145); Total Protein 6.7 g/dL (6.3-8.2)
[2022-01-15 23:39] LABS: PROTIME 10.6 SECONDS (9.4-12.5); PTT 23.6 SECONDS (25.1-36.5)
--- NOTE | 2022-01-16 00:25 | ERPHSYRPT ---
- History of Present Illness Source: patient, EMS Exam Limitations: no limitations Patient Subjective Stated Complaint: EMS states that patient had a syncope episode at the bar. 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 Pt is alert and oriented x3 upon arrival w great airway. She states that she is back to normal. Pt denies chest pain/focal weakness/fever/N/V/melena/hematochezia. She was drinking alcohol today. Injury is denied. Witnessed: bystander Prior Episodes: single episode today Timing/Duration: today Precipitating Factors: unknown Context: standing Loss of Consciousness: brief (seconds) Charcter of event(s): collapsed Allergies/Adverse Reactions: No Known Drug Allergies Allergy (Verified 01/15/22 22:55) Home Medications: Gabapentin [Neurontin] 300 mg PO DAILY 02/15/18 [History] Ibuprofen [Advil] 400 mg PO Q4H PRN PRN 02/10/21 [History] Cyanocobalamin (Vitamin B-12) [Vitamin B-12] 1,000 mcg PO DAILY 03/24/21 [History] Pyridoxine HCl (Vitamin B6) [Vitamin B-6] 25 mg PO DAILY 03/24/21 [History] Hx Tetanus, Diphtheria Vaccination/Date Given: Yes Hx Influenza Vaccination/Date Given: No Hx Pneumococcal Vaccination/Date Given: No Travel Risk - International Travel Have you traveled outside of the country in past 3 weeks: No - Coronavirus Screening Are you exhibiting any of the following symptoms?: No Close contact with a COVID-19 positive Pt in past 14-21 Days: No - Vaccine Status Have you recieved a Covid-19 vaccination: No - Past Medical History Pertinent Past Medical History: Yes Neurological History: Peripheral Neuropathy ENT History: No Pertinent History Cardiac History: No Pertinent History Respiratory History: No Pertinent History Endocrine Medical History: No Pertinent History Musculoskeletal History: Arthritis GI Medical History: Colorectal Cancer History: No Pertinent History Psycho-Social History: Anxiety Female Reproductive Disorders: No Pertinent History - Past Surgical History Past Surgical History: Yes Neuro Surgical History: No Pertinent History Cardiac: No Pertinent History Respiratory: No Pertinent History Gastrointestinal: Colon Resection Genitourinary: No Pertinent History Musculoskeletal: No Pertinent History Female Surgical History: No Pertinent History Other Surgical History: port placement, ostomy takedown - Social History Smoking Status: Light tobacco smoker How long have you smoked: 51 years Exposure to second hand smoke: Yes Drug Use: marijuana Patient Lives Alone: Yes Significant Family History: no pertinent family hx - Review of Systems Constitutional: No Symptoms Eyes: No Symptoms Ears, Nose, & Throat: No Symptoms Respiratory: No Symptoms Cardiac: No Symptoms Abdominal/Gastrointestinal: No Symptoms Genitourinary Symptoms: No Symptoms Musculoskeletal: No Symptoms Skin: No Symptoms Neurological: No Symptoms Psychological: No Symptoms Endocrine: No Symptoms Hematologic/Lymphatic: No Symptoms Immunological/Allergic: No Symptoms Physical Exam - Nursing Vital Signs Nursing Vital Signs: Initial Vital Signs Temperature 97.4 F 01/15/22 22:55 Pulse Rate 86 01/15/22 22:55 Respiratory Rate 18 01/15/22 22:55 Blood Pressure 130/73 01/15/22 22:55 O2 Sat by Pulse Oximetry 99 01/15/22 22:55 Pain Scale Pain Intensity 0 WNL - [place] Coma Scale Best Eye Response ([place]): (4) open spontaneously Best Verbal Response ([place]): (5) oriented Best Motor Response ([place]): (6) obeys commands [place] Total: 15 - Physical Exam General Appearance: no apparent distress Eye Exam: bilateral eye: normal inspection, PERRL, EOMI Ears, Nose, Throat Exam: normal ENT inspection, TMs normal, pharynx normal, moist mucous membranes Neck Exam: normal inspection, non-tender, supple, full range of motion, No meningismus, No mass, No Brudzinski, No Kernig's, No carotid bruit Respiratory: normal breath sounds, lungs clear, airway intact, No respiratory distress Cardiovascular: regular rate/rhythm, normal heart sounds, normal peripheral pulses, capillary refill <2 sec, No murmur Gastrointestinal: soft, normal bowel sounds, No tenderness Back Exam: normal inspection, normal range of motion, No CVA tenderness Extremity Exam: normal inspection, normal range of motion Peripheral Pulses: carotid (R): 2+, carotid (L): 2+ Mental Status: alert, 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, 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 Exam: normal hearing, normal speech, PERRL Coordination/Gait: negative Romberg's sign Motor/Sensory: no motor deficit, no sensory deficit, no pronator drift, negative Babinski's sign DTR: bicep (R): 2+, bicep (L): 2+ Skin Exam: normal color, warm, dry, No rash SpO2 Interpretation: normal SpO2: 98 O2 Delivery: Room Air - Course Nursing assessment & vital signs reviewed: Yes EKG Interpreted by Me: RATE (NSR/Rate89/Prolonged QTc/Low voltage/No acute ST segment changes) - CT Exams Head CT Interpretation: Tele-radiologist Report Ordered Tests: Active Orders 24 hr Category Date Time Status EKG-ER Only STAT Care 01/15/22 22:49 Completed HEAD WITHOUT CONTRAST [CT] Stat Exams 01/16/22 02:05 Taken CBC W DIFF Stat Lab 01/15/22 23:24 Completed CMP Stat Lab 01/15/22 23:24 Completed ETHYL ALCOHOL Stat Lab 01/15/22 23:24 Completed PROTIME WITH INR Stat Lab 01/15/22 23:24 Completed PTT Stat Lab 01/15/22 23:24 Completed TROPONIN Q3H Lab 01/15/22 23:24 Completed TROPONIN Q3H Lab 01/16/22 01:11 Completed TROPONIN Q3H Lab 01/16/22 05:00 Ordered TROPONIN Q3H Lab 01/16/22 08:00 Ordered TROPONIN Q3H Lab 01/16/22 11:00 Ordered Urine Triage Profile Stat Lab 01/15/22 22:50 Ordered Medication Summary Discontinued Medications Generic Name Dose Route Start Last Admin Trade Name Freq PRN Reason Stop Dose Admin Sodium Chloride 1,000 mls @ 999 mls/hr 01/16/22 00:56 01/16/22 02:00 Sodium Chloride 0.9% 1000 Ml IV 01/16/22 01:56 Infused .Q1H1M STA Infusion Sodium Chloride Confirm 01/16/22 01:04 Sodium Chloride 0.9% 1000 Ml Administered 01/16/22 01:05 Dose 1,000 mls @ ud .ROUTE .[facility] Lab/Rad Data: Laboratory Result Diagrams 01/15/22 23:24 01/15/22 23:24 Laboratory Results 01/16/22 01/15/22 01/15/22 Range/Units 01:11 23:24 23:24 WBC (4.0-10.5) x10^3/uL RBC (4.1-5.4) x10^6/uL Hgb (12.0-16.0) g/dL Hct (35-47) % MCV (78-100) fL MCH (26-32) pg MCHC (32-36) g/dL RDW (11.5-14.0) % Plt Count (150-450) x10^3/uL MPV (7.5-11.0) fL Gran % (36.0-66.0) % Immature Gran % (Auto) (0.00-0.4) % Nucleat RBC Rel Count (0.00-0.1) % Eos # (Auto) (0-0.5) x10^3/uL Immature Gran # (Auto) (0.00-0.03) x10^3u/L Absolute Lymphs (auto) (1.0-4.6) x10^3/uL Absolute Monos (auto) (0.0-1.3) x10^3/uL Absolute Nucleated RBC (0.00-0.01) x10^3u/L Lymphocytes % (24.0-44.0) % Monocytes % (0.0-12.0) % Eosinophils % (0.00-5.0) % Basophils % (0.0-0.4) % Absolute Granulocytes (1.4-6.9) x10^3/uL Basophils # (0-0.4) x10^3/uL PT 10.6 (9.4-12.5) SECONDS INR 1.00 (0.8-3.0) APTT 23.6 L (25.1-36.5) SECONDS Sodium (137-145) mmol/L Potassium (3.5-5.1) mmol/L Chloride (98-107) mmol/L Carbon Dioxide (22-30) mmol/L Anion Gap (5-15) MEQ/L BUN (7-17) mg/dL Creatinine (0.52-1.04) mg/dL Estimated GFR ML/MIN Glucose (74-106) mg/dL Calcium (8.4-10.2) mg/dL Total Bilirubin (0.2-1.3) mg/dL AST (14-36) U/L ALT (0-35) U/L Alkaline Phosphatase (38-126) U/L Troponin I < 0.012 < 0.012 (0.000-0.034) ng/mL Serum Total Protein (6.3-8.2) g/dL Albumin (3.5-5.0) g/dL Ethyl Alcohol (0-10) mg/dL 01/15/22 01/15/22 Range/Units 23:24 23:24 WBC 7.6 (4.0-10.5) x10^3/uL RBC 3.70 L (4.1-5.4) x10^6/uL Hgb 12.1 (12.0-16.0) g/dL Hct 36.9 (35-47) % MCV 99.7 (78-100) fL MCH 32.7 H (26-32) pg MCHC 32.8 (32-36) g/dL RDW 12.2 (11.5-14.0) % Plt Count 236 (150-450) x10^3/uL MPV 9.9 (7.5-11.0) fL Gran % 46.0 (36.0-66.0) % Immature Gran % (Auto) 0.4 (0.00-0.4) % Nucleat RBC Rel Count 0.0 (0.00-0.1) % Eos # (Auto) 0.26 (0-0.5) x10^3/uL Immature Gran # (Auto) 0.03 (0.00-0.03) x10^3u/L Absolute Lymphs (auto) 3.12 (1.0-4.6) x10^3/uL Absolute Monos (auto) 0.60 (0.0-1.3) x10^3/uL Absolute Nucleated RBC 0.00 (0.00-0.01) x10^3u/L Lymphocytes % 40.9 (24.0-44.0) % Monocytes % 7.9 (0.0-12.0) % Eosinophils % 3.4 (0.00-5.0) % Basophils % 1.4 (0.0-0.4) % Absolute Granulocytes 3.50 (1.4-6.9) x10^3/uL Basophils # 0.11 (0-0.4) x10^3/uL PT (9.4-12.5) SECONDS INR (0.8-3.0) APTT (25.1-36.5) SECONDS Sodium 130 L (137-145) mmol/L Potassium 3.6 (3.5-5.1) mmol/L Chloride 102 (98-107) mmol/L Carbon Dioxide 18 L (22-30) mmol/L Anion Gap 13.7 (5-15) MEQ/L BUN 9 (7-17) mg/dL Creatinine 0.90 (0.52-1.04) mg/dL Estimated GFR > 60.0 ML/MIN Glucose 93 (74-106) mg/dL Calcium 8.1 L (8.4-10.2) mg/dL Total Bilirubin 0.60 (0.2-1.3) mg/dL AST 33 (14-36) U/L ALT 20 (0-35) U/L Alkaline Phosphatase 67 (38-126) U/L Troponin I (0.000-0.034) ng/mL Serum Total Protein 6.7 (6.3-8.2) g/dL Albumin 3.8 (3.5-5.0) g/dL Ethyl Alcohol 134 H (0-10) mg/dL - Progress Progress: improved Progress Note: 01/16/22 01:[address] head-Risks explained to pt , including metastatic dz/intracranial bleed/CVA Pt later agreed to CT of head which was negative Pt wo focal weakness in ER 1500ml NS bolus 01/16/22 02:30 Counseled pt/family regarding: lab results, diagnosis, need for follow-up, rad results - Departure Departure Disposition: Home Clinical Impression: Syncope, Alcohol intoxication Condition: Stable Critical Care Time: No Referrals: KOBE LAGUNAS [Primary Care Provider] - Follow up/PCP as directed Instructions: Syncope (Fainting) (DC) Additional Instructions: Follow up with your family MD on Monday Return to ER for focal weakness/chest pain/shortness of breath Avoid alcohol for several days No driving until cleared by your family MD
[2022-01-16] MEDS ORDERED: Sodium Chloride 0.9% 1000 ML 1,000 ML IV STA (00:56)
[2022-01-16] MEDS ORDERED: Sodium Chloride 0.9% 1000 ML 1,000 ML ONE (01:04)
[2022-01-16 02:02] VITALS: BP 124/81; PULSE 90
[2022-01-16 02:31] VITALS: O2SAT 98
--- NOTE | 2022-01-16 07:49 | XRAY ---
Indication: Status post fall. Syncope. Multiple contiguous axial images obtained through the head without contrast. Comparison: None Ventriculosulcal pattern appears symmetric with age appropriate global atrophy. No acute intracranial hemorrhage, abnotmal extra axial fluid collection of mass effect. Medial left middle fossa demonstrates a 2.6 x 1.5 x 2.1 cm mass with peripheral punctate calcifications. Fourth ventricle is middle line without hydrocephalus. [place] white matter differention preserved. Bony calvarium is intact. Impression: Left middle fossa mass as detailed. MRI brain with contrast recommended. Comment: Preliminary interpretation made by [facility]. Mass not reported. Telephone report made to Dr. Delgadillo at 0753 hrs on January 16, 2022.
== END 2022-01-16 02:51 | disposition home or self-care (01) ==
LOC: ED 22:47
DX: R55 Syncope and collapse (principal); F10.129 Alcohol abuse with intoxication, unspecified; Y90.6 Blood alcohol level of 120-199 mg/100 ml; R93.89 Abnormal findings on diagnostic imaging of other specified body structures; Z72.0 Tobacco use; Z79.899 Other long term (current) drug therapy; Z28.310 Unvaccinated for COVID-19
CPT/HCPCS: 36415; 70450; 80053; 84484; 85025; 85610; 85730; 93005; 96360; 99284; G0480; 80307

== ENCOUNTER 2022-01-26 15:01 | Emergency (ER) | payer MEDICARE, OTHER ==
--- NOTE | 2022-01-26 15:51 | ERPHSYRPT ---
- History of Present Illness Source: patient Exam Limitations: no limitations Patient Subjective Stated Complaint: C/O headache that started last night Triage Nursing Assessment: Patient ambulated back to ED. She is alert and oriented. Face is red. Skin is warm to touch. Temp noted to be 100.1. No SOB noted. Light noted to hurt patient's eyes; lights dimmed in patient room. 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 Pain is 10 and sharp. Pain radiates to R temporal area. She denies h/o NUNEZ. Bright light makes the pain worse, and she has some blurry vision. Pt has a mild fever but denies cough/coryza/vomiting/diarrhea/dysuria/hematuria. She has mild nausea. Appointment has been scheduled w neurosurgeon next Monday in [facility]. Timing/Duration: yesterday Quality: sharpness Head Pain Location: frontal Severity of Pain-Max: severe Severity of Pain-Current: severe Recent Head Trauma: no recent headache/trauma Modifying Factors: Improves With: exposure to light Associated Symptoms: denies symptoms, fever/chills Previous symptoms: no prior history Allergies/Adverse Reactions: No Known Drug Allergies Allergy (Verified 01/26/22 15:26) Home Medications: Gabapentin [Neurontin] 300 mg PO DAILY 02/15/18 [History] Ibuprofen [Advil] 400 mg PO Q4H PRN PRN 02/10/21 [History] Cyanocobalamin (Vitamin B-12) [Vitamin B-12] 1,000 mcg PO DAILY 03/24/21 [History] Pyridoxine HCl (Vitamin B6) [Vitamin B-6] 25 mg PO DAILY 03/24/21 [History] Hx Tetanus, Diphtheria Vaccination/Date Given: Yes Hx Influenza Vaccination/Date Given: No Hx Pneumococcal Vaccination/Date Given: No Immunizations Up to Date: Yes Travel Risk - International Travel Have you traveled outside of the country in past 3 weeks: No - Coronavirus Screening Are you exhibiting any of the following symptoms?: Yes Symptoms: Fever, Headaches/Body Aches/Fatigue Close contact with a COVID-19 positive Pt in past 14-21 Days: No - Vaccine Status Have you recieved a Covid-19 vaccination: No - Review of Systems Constitutional: No Symptoms, Fever Eyes: No Symptoms Ears, Nose, & Throat: No Symptoms Respiratory: No Symptoms Cardiac: No Symptoms Abdominal/Gastrointestinal: No Symptoms, Nausea Genitourinary Symptoms: No Symptoms Musculoskeletal: No Symptoms Skin: No Symptoms Neurological: No Symptoms, Headache Psychological: No Symptoms Endocrine: No Symptoms Hematologic/Lymphatic: No Symptoms Immunological/Allergic: No Symptoms - Past Medical History Pertinent Past Medical History: Yes Neurological History: Peripheral Neuropathy ENT History: No Pertinent History Cardiac History: No Pertinent History Respiratory History: No Pertinent History Endocrine Medical History: No Pertinent History Musculoskeletal History: Arthritis GI Medical History: Colorectal Cancer History: No Pertinent History Psycho-Social History: Anxiety Female Reproductive Disorders: No Pertinent History - Past Surgical History Past Surgical History: Yes Neuro Surgical History: No Pertinent History Cardiac: No Pertinent History Respiratory: No Pertinent History Gastrointestinal: Colon Resection Genitourinary: No Pertinent History Musculoskeletal: No Pertinent History Female Surgical History: No Pertinent History Other Surgical History: port placement, ostomy takedown - Social History Smoking Status: Current some day smoker How long have you smoked: 51 years Exposure to second hand smoke: Yes Drug Use: marijuana Patient Lives Alone: Yes Significant Family History: no pertinent family hx - Nursing Vital Signs Nursing Vital Signs: Initial Vital Signs Temperature 100.1 F 01/26/22 15:30 Pulse Rate 83 01/26/22 15:30 Respiratory Rate 17 01/26/22 15:30 Blood Pressure 117/58 01/26/22 15:30 O2 Sat by Pulse Oximetry 96 01/26/22 15:30 Pain Scale Pain Intensity 5 Borderline fever - Physical Exam General Appearance: no apparent distress (In pain) Eye Exam: PERRL/EOMI, eyes nml inspection Ears, Nose, Throat Exam: normal ENT inspection, TMs normal, pharynx normal, moist mucous membranes Neck Exam: normal inspection, non-tender, supple, full range of motion, No meningismus, No mass, No Brudzinski, No Kernig's, No carotid bruit Respiratory Exam: normal breath sounds, lungs clear, airway intact Cardiovascular Exam: regular rate/rhythm, normal heart sounds, normal peripheral pulses, capillary refill <2 sec, No murmur Gastrointestinal/Abdominal Exam: soft, normal bowel sounds, No tenderness Back Exam: normal inspection, normal range of motion, No CVA tenderness, No vertebral tenderness Extremity Exam: normal inspection, normal range of motion Mental Status Exam: alert, 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, 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 Exam: normal hearing, normal speech, PERRL, tongue midline, No abnormal eye position, No abnormal gag reflex, No abnormal pupil position, No abnormal speech, No facial asymmetry, No facial droop, No facial paresthesias, No facial weakness, No gaze palsy, No hearing deficit (R), No hearing deficit (L), No tongue deviation to R, No tongue deviation to L Motor/Sensory Exam: no motor deficit, no sensory deficit, no pronator drift, negative Babinski's sign DTR Exam: bicep (R): 2+, bicep (L): 2+ Skin Exam: normal color, warm, dry Lymphatic Exam: No adenopathy SpO2 Interpretation: normal SpO2: 96 O2 Delivery: Room Air - Course Nursing assessment & vital signs reviewed: Yes - CT Exams Head CT Interpretation: Discussed w/radiologist (CTA head-No sig change/Stable LICA aneurism) Soft Tissue Neck CT Interpretation: Discussed w/radiologist (CTA of neck neg) Ordered Tests: Active Orders 24 hr Category Date Time Status CT ANGIOGRAPHY NECK [CT] Stat Exams 01/26/22 16:31 Taken CTA HEAD W AND/OR WO CONTRAST [CT] Stat Exams 01/26/22 15:43 Taken Medication Summary Discontinued Medications Generic Name Dose Route Start Last Admin Trade Name Beauq PRN Reason Stop Dose Admin Acetaminophen 1,000 mg 01/26/22 17:28 01/26/22 17:29 Acetaminophen 500 Mg Tablet PO 01/26/22 17:29 1,000 mg STAT ONE Administration Acetaminophen Confirm 01/26/22 17:28 Acetaminophen 500 Mg Tablet Administered 01/26/22 17:29 Dose 1,000 mg .ROUTE .[facility] Lab/Rad Data: Laboratory Results 01/26/22 Range/Units 16:00 Influenza Type A Ag NEGATIVE (NEGATIVE) Influenza Type B Ag NEGATIVE (NEGATIVE) RSV (PCR) NEGATIVE (Negative) SARS-CoV-2 (PCR) POSITIVE A (NEGATIVE) - Progress Progress: improved Progress Note: 01/26/22 18:33 Pt's pain resolved w 1gm po Tylenol Counseled pt/family regarding: lab results, diagnosis, need for follow-up, rad results - Departure Departure Disposition: Home Clinical Impression: COVID-19, Internal carotid aneurysm Condition: Stable Critical Care Time: No Referrals: JANNETH,KOBE F [Primary Care Provider] - Follow up/PCP as directed Instructions: Headache, Adult (DC), COVID-19 (DC) Additional Instructions: Start Paxlovid YANCI Fluids Follow up with the Neurosurgeon Return to ER for worsening pain or shortness of breath Get a pulse oximeter and monitor oxygen saturation 2-3 times a day Return to ER for persistent oxygen saturation less than 90% Prescriptions: Nirmatrelvir/Ritonavir [Paxlovid 2X150 mg-100 mg (Eua)] 1 each PO BID 5 Days #30 tablet
[2022-01-26 16:45] LABS: INFLUENZA A NEGATIVE (NEGATIVE); INFLUENZA B NEGATIVE (NEGATIVE); RESPIRATORY SYNCTIAL VIRUS NEGATIVE (Negative)
[2022-01-26 17:08] LABS: SARS-CoV-2 Xpert Express POSITIVE (NEGATIVE)
[2022-01-26] MEDS ORDERED: TYLENOL EXTRA STRENGTH 500 MG ONE (17:28)
[2022-01-26] MEDS: TYLENOL EXTRA STRENGTH 500 MG PO ONE (17:29)
[2022-01-26 18:51] VITALS: BP 110/54; PULSE 79
[2022-01-26 22:38] VITALS: O2SAT 96
--- NOTE | 2022-01-27 08:55 | XRAY ---
Indication: Headache. Left internal carotid artery aneurysm on recent MRI brain with contrast exam January 19, 2022. Initial conventional CT head performed without contrast. Then contrast enhanced CTA head performed using 80 cc Isovue 370 contrast. 2-D sagittal and coronal reformatted images obtained. Additional 3-D reformatted images obtained using a separate workstation. Comparison: CT head January 16, 2022. CT head without contrast exam again demonstrates age-appropriate global atrophy. No acute intracranial hemorrhage, abnormal extra-axial fluid collection, or mass effect. Fourth ventricle is midline without hydrocephalus. Fowler-white matter differentiation preserved. Bony calvarium intact. Visualized paranasal sinuses and mastoid air cells are clear. CTA images again demonstrates MRI proven saccular aneurysm emanating from the cavernous segment of the left internal carotid artery measuring 2.3 x 1.4 x 1.5 cm unchanged. Remaining internal carotid arteries are normal in course and caliber bilaterally. Normal carotid terminus with normal branching A1 and M1 segments bilaterally. More distal anterior cerebral, middle cerebral, anterior communicating, and posterior communicating arteries are normal in CTA appearance. Distal vertebral arteries are bilaterally symmetric. Remaining basilar, left/right posterior cerebral, left/right superior cerebellar, and left/right anterior inferior cerebellar arteries are normal in CTA appearance. Venous drainage/sinuses are unremarkable. Remaining brain is negative for abnormal enhancing intra or extra-axial mass. Impression: 1. Grossly stable left internal carotid artery saccular aneurysm. 2. Remaining CT head without contrast exam and CTA head with contrast exam is negative.
--- NOTE | 2022-01-27 08:59 | XRAY ---
Indication: Headache. Left internal carotid artery aneurysm on recent MRI brain with contrast exam January 19, 2022. Conventional contrast enhanced CTA neck performed using 80 cc Isovue 370 contrast. 2-D sagittal and coronal reformatted images obtained. Additional 3-D reformatted images obtained using a separate workstation. Comparison: None Visualized aortic arch is minimally arteriosclerotic with normal branching right brachiocephalic, left common carotid, and left subclavian arteries. Minimal calcifications at origin left subclavian artery without critical stenosis/obstruction. Left carotid circulation demonstrates minimal eccentric arteriosclerotic calcifications at the level of the bulb. Remaining common carotid, internal carotid, and external carotid arteries are normal in CTA appearance. Right carotid circulation demonstrates normal CTA appearance to the common carotid, carotid bulb, internal carotid, and external carotid arteries. Vertebral arteries are bilaterally symmetric with the left slightly larger in caliber. No critical stenosis, obstruction, or AV malformation. Visualized soft tissues are unremarkable. Supra and infraglottic airway are widely patent. Lung apices demonstrate biapical subpleural cystic changes and pleural parenchymal fibrosis/scarring. Visualized osseous structures intact with incidental mild/moderate degenerative changes throughout the spine, greatest at C4-C7 levels. Impression: 1. Minimal eccentric calcifications left carotid bulb. 2. Remaining CTA neck with contrast exam is negative. 3. Incidental biapical pleural-parenchymal fibrosis/scarring and subpleural cystic changes. 4. Multilevel degenerative spondylosis.
== END 2022-01-26 18:50 | disposition home or self-care (01) ==
LOC: ED 15:01
DX: U07.1 COVID-19 (principal); I67.1 Cerebral aneurysm, nonruptured; R51.9 Headache, unspecified; H53.8 Other visual disturbances; R50.9 Fever, unspecified; R11.0 Nausea; Z72.0 Tobacco use; Z79.899 Other long term (current) drug therapy; Z28.310 Unvaccinated for COVID-19
CPT/HCPCS: 0241U; 70496; 70498; 99283; A9270-GY